=== PATIENT | male | born 1945 | race Caucasian/White ===

== ENCOUNTER → 2017-09-14 09:52 | Outpatient (CLI) | payer MEDICARE, OTHER, SELFPAY ==
--- NOTE | 2017-09-14 | DI.RAD.S_ITS ---
PROCEDURE: XR HIP W PEL IF DONE LT MIN 4V INDICATIONS: BILATERAL GROIN PAIN TECHNIQUE: AP pelvis with lateral view(s) of the bilateral hip(s), 3 total images. COMPARISON: None. FINDINGS: Bones: No fractures or dislocations. Pelvic ring appears intact. No suspicious bony lesions. Soft tissues: The visualized bowel gas pattern is normal. No suspicious soft tissue calcifications. IMPRESSION: Moderate symmetric hip joint osteoarthritis, no trauma found. Dictated by: Cedrick Skinner M.D. on 09/14/2017 at 12:16 Approved by: Cedrick Skinner M.D. on 09/14/2017 at 12:17
== END ==
PROVIDERS: Family Provider Family Medicine; PCP Family Medicine; Visit Provider Family Medicine
DX: R10.30 Lower abdominal pain, unspecified (principal); M16.0 Bilateral primary osteoarthritis of hip
CPT/HCPCS: 73522

== ENCOUNTER → 2017-10-03 13:12 | Outpatient (CLI) | payer MEDICARE, OTHER, SELFPAY ==
--- NOTE | 2017-10-03 13:13 | DI.MRI.S_ITS ---
PROCEDURE: MR LUMBAR SPINE WO CON INDICATIONS: SPINAL STENOSIS OF LUMBAR SPINE TECHNIQUE: Noncontrast sagittal T1 spin echo and T2 fast echo, sagittal STIR, axial T1 and T2 fast spin echo through the lumbar spine. In cases with scoliosis, additional coronal T2 fast spin echo may be performed. COMPARISON: [facility], MR, MR LUMBAR SPINE WO CON, 04/23/2016, 14:30. FINDINGS: Image quality: Excellent. Alignment and Curvature: Straightening of the normal lumbar lordosis and grade 1 retrolisthesis of L2 on L3, L3 on L4 and L4 on L5, L5 on S1 as before. Grade 1 anterolisthesis of T12 on L1 Bone Marrow: Marrow is of normal overall signal. Scattered chronic small Schmorl's nodes are seen. Mild anterior wedging of the L1 and L2 vertebral body which appears unchanged in no associated marrow edema. Spinal Cord: Conus medullaris terminates at the L1 level. Visualized cord demonstrates normal signal and size. Paraspinous Soft Tissues: Bilateral T2 hyperintense resume renal cysts, technically indeterminate and not entirely included on the field of view although grossly unchanged. At T12-L1: Broad-based posterior disc bulge and bilateral facet arthropathy with mild canal narrowing. No definite foraminal stenosis and appearance is grossly unchanged L1-L2: Broad-based posterior disc bulge bilateral facet arthropathy with mild canal narrowing, unchanged. No definite foraminal stenosis. L2-L3: Broad-based posterior disc bulge and bilateral facet arthropathy. Mild canal narrowing with unchanged appearance minimal bilateral foraminal stenoses. L3-L4: Broad-based posterior disc bulge and mild facet arthropathy. Mild canal narrowing which appears grossly unchanged. Mild bilateral foraminal narrowing. L4-L5: Broad-based posterior disc bulge and posterior annular fissure. Bilateral facet arthropathy with ligamentum flavum hypertrophy. Moderate canal narrowing which is minimally accentuated by a dorsal epidural lipomatosis. Mild to moderate bilateral foraminal stenoses. L5-S1: Broad-based posterior disc bulge and bilateral facet arthropathy. Mild canal narrowing. Severe bilateral foraminal stenoses although the appearance is grossly unchanged. IMPRESSION: Overall, no interval change since 04/23/16 with redemonstration of multilevel lumbar disc degeneration and facet arthropathy and moderate L4-L5 canal narrowing. Bilateral severe L5-S1 foraminal stenoses, unchanged. Dictated by: Anatoly Peacock M.D. on 10/03/2017 at 14:10 Approved by: Anatoly Peacock M.D. on 10/03/2017 at 14:20
== END ==
PROVIDERS: Family Provider Family Medicine; PCP Family Medicine; Visit Provider Physical Medicine & Rehabilitation
DX: M48.061 Spinal stenosis, lumbar region without neurogenic claudication (principal); M51.36 Other intervertebral disc degeneration, lumbar region; M70.61 Trochanteric bursitis, right hip; M70.62 Trochanteric bursitis, left hip
CPT/HCPCS: 72148

== ENCOUNTER 2017-11-01 07:11 | Outpatient (CLI) | payer MEDICARE, OTHER, SELFPAY ==
[2017-11-01] VITALS (13 sets, daily range): BP systolic 100–120; BP diastolic 61–83; PULSE 67–85; RESP 16–20; TEMP 36.3; O2SAT 97–100
--- NOTE | 2017-11-01 | DI.RAD.S_ITS ---
PROCEDURE: PAIN C/T INTERLAMINAR INJECT INDICATIONS: SPINAL STENOSIS FINDINGS: Fluoroscopic spot filming was performed to verify placement of spinal needles at the left C6-7 level(s), as labeled on the films. Appropriate location(s) of the needle tip(s) was confirmed by injection of iodinated contrast. IMPRESSION: Left C6-7 localization for interlaminar injection. Dictated by: Cedrick Skinner M.D. on 11/01/2017 at 12:52 Approved by: Cedrick Skinner M.D. on 11/01/2017 at 13:08
[2017-11-01] MEDS: MIDAZOLAM 5 MG/5 ML VIAL IV (08:23)
[2017-11-01] MEDS: DEXAMETHASONE 10 MG/ML VIAL 30 MG INJ (08:32)
[2017-11-01] MEDS: LIDOCAINE 1% 20 ML INJ 5 ML INJ (08:32)
[2017-11-01] MEDS: IOPAMIDOL 15 ML VIAL 3 ML INJ (08:32)
--- NOTE | 2017-11-01 08:37 | PM.PROC.1 ---
Procedures Date/Time Date of procedure: 11/01/17 Time of procedure: 08:37 General Procedure description: PREOP DIAGNOSIS 1. CERVICAL STENOSIS, 2. CERVICAL HNP WITH UPPER EXTREMITY RADICULAR FEATURES, POST OP DIAGNOSIS 1. CERVICAL STENOSIS, 2. CERVICAL HNP WITH UPPER EXTREMITY RADICULAR FEATURES, PROCEDURES 1. FLUORSCOPICALLY GUIDED CONTRAST CONTROLLED INTERLAMINAR EPIDURAL STEROID INJECTION - C6/7 TL ARTHUR PHYSICIAN: Jareth Sarkar, DO INDICATIONS Dick is referred by Dr. Amaya for treatment of Cervical HNP with Upper Extremity Paresthesias. FINDINGS Cervical Stenosis due to disc deterioration and nerve root irritation and nerve root irritation DESCRIPTION OF PROCEDURE Fluoroscopically guided, contrast-controlled C6/7 translaminar epidural steroid injection with conscious sedation. Following denial of allergy and review of potential side effects and complications, including, but not necessarily limited to, infection, allergic reaction, local tissue breakdown, temporary as well as permanent nerve injury, stroke, paralysis, and possible , the patient indicated that patient understood and agreed to proceed. An informed consent document was signed by the patient, witnessed by a nurse, and placed in the patient's chart. Additionally, other treatment options including modalities, medications, and physical therapy were reviewed with the patient. After review of previous anaesthesic history and IV conscious sedation the patient was deemed safe to proceed with todays procedure with IV conscious sedation as ASA class II designation. Safety time-out was performed to confirm patient ID, procedure to be performed and site of procedure. IV sedation was accomplished with a combination of 4mg of Versed administered by the RN after DO order, titrated to patient comfort during the course of the procedure while the patient remained responsive to all verbal commands. In the prone position, following sterile prep and drape of the cervical region, the C6/7 translaminar space was identified fluoroscopically. The skin was anesthetized via a 25-gauge 1.5-inch needle with 1% lidocaine solution. At this point, a 25-gauge, 2.5-inch short bevel spinal needle was atraumatically introduced and advanced under fluoroscopic guidance into epidural space at the C6/7 translaminar space. Depth was confirmed on lateral view. Radiological data, including multiple fluoroscopic views of the cervical spine, reveal a spinal needle at the C6/7 translaminar space. Lateral views then show placement of the needle in the epidural space. Subsequent views show contrast material flowing superiorly and inferiorly in the epidural space. DSA fluoroscopy with live contrast injection, once again, confirmed no vascular or intrathecal uptake. At this point, using loss of resistance technique with saline and air, the epidural space was entered. Following negative aspiration, injection of approximately 1.5 cc of Isovue-200 with live fluoroscopy in the AP view confirmed epidural flow in the epidural space without vascular or intrathecal uptake observed. Subsequently, a test dose of 1 cc of 1% lidocaine solution was injected and patient was observed for two minutes without signs or symptoms of complications, including abdominal pain, shortness of breath, bilateral upper or lower extremity weakness, nausea and vomiting, prior to steroid injection. At this point, 3 cc or 30 mg of dexamethasone was then injected without incident. The patient tolerated the procedure well without signs or symptoms of complications prior to being transferred to the recovery area for further monitoring, The patient was then transferred to the recovery area where they were observed for an appropriate period of time after the injection. The patient reported a VAS score of 6 prior to the procedure and a post-procedure VAS of 0. Total Fluoroscopy Time: 37.0 seconds Total Conscious Time: 24min POST OP INSTRUCTIONS The patient was provided a Pain Log to continue to record their response to the target-specific procedure prior to follow-up visit with the referring provider. Additionally, specific post-injection care instructions and a contact number to our office were provided if concerns arise regarding possible complications associated with the procedure are suspected. Jareth Sarkar, Complications: none
--- NOTE | 2017-11-02 14:16 | PC.NURSE ---
FOLLOW UP PHONE CALL MADE. LEFT MSG WITH OFFICE NUMBER IF PT HAS QUESITONS/CONCERNS.
== END 2017-11-01 09:08 ==
LOC: RAD 07:12
PROVIDERS: Family Provider Family Medicine; PCP Family Medicine; Visit Provider Physical Medicine & Rehabilitation
DX: M48.02 Spinal stenosis, cervical region (principal); M50.123 Cervical disc disorder at C6-C7 level with radiculopathy
CPT/HCPCS: 62321; 99152; J1100; J2250

== ENCOUNTER → 2017-12-12 15:48 | Outpatient (CLI) | payer MEDICARE, OTHER, SELFPAY ==
--- NOTE | 2017-12-12 | DI.RAD.S_ITS ---
PROCEDURE: XR SHOULDER RT MIN 2V INDICATIONS: RIGHT SHOULDER PAIN TECHNIQUE: 3 views of the shoulder were acquired. COMPARISON: None. FINDINGS: Bones: No fractures or dislocations. No suspicious bony lesions. Visualized ribs appear intact. Soft tissues: No suspicious soft tissue calcifications. IMPRESSION: Degenerative osteophytic changes seen over the glenohumeral joint and to a small degree at the acromioclavicular joint. No acute trauma found. Dictated by: Cedrick Skinner M.D. on 12/12/2017 at 16:42 Approved by: Cedrick Skinner M.D. on 12/12/2017 at 16:43
== END ==
PROVIDERS: Family Provider Family Medicine; PCP Family Medicine; Visit Provider Nurse Practitioner Family
DX: M25.511 Pain in right shoulder (principal); M19.011 Primary osteoarthritis, right shoulder
CPT/HCPCS: 73030

== ENCOUNTER 2018-12-28 07:48 | Outpatient (CLI) | payer MEDICARE, OTHER, SELFPAY ==
--- NOTE | 2018-12-28 07:49 | DI.RAD.S_ITS ---
PROCEDURE: PAIN C/T INTERLAMINAR INJECT INDICATIONS: SPINAL STENOSIS FINDINGS: Fluoroscopic spot filming was performed to verify placement of spinal needles at the C6-C7 level(s), as labeled on the films. Appropriate location(s) of the needle tip(s) was confirmed by injection of iodinated contrast. Dictated by: Anatoly Peacock M.D. on 12/28/2018 at 10:13 Approved by: Anatoly Peacock M.D. on 12/28/2018 at 10:15
[2018-12-28 08:27] VITALS: BP 116/77; PULSE 61; RESP 16; TEMP 36; O2SAT 96
[2018-12-28 09:04] VITALS: BP 118/96; PULSE 65; RESP 16; O2SAT 98
[2018-12-28] MEDS: fentaNYL 100 MCG/2 ML INJ 50 MCG IV (09:04)
[2018-12-28] MEDS: MIDAZOLAM 5 MG/5 ML VIAL IV (09:04)
[2018-12-28 09:09] VITALS: BP 108/75; PULSE 61; RESP 15; O2SAT 97
[2018-12-28] MEDS: LIDOCAINE 1% 20 ML 5 ML INJ (09:13)
[2018-12-28 09:14] VITALS: BP 115/75; PULSE 60; RESP 16; O2SAT 97
[2018-12-28] MEDS: IOPAMIDOL 15 ML VIAL 3 ML INJ (09:14)
[2018-12-28] MEDS: DEXAMETHASONE 10 MG/ML VIAL 30 MG INJ (09:15)
[2018-12-28 09:21] VITALS: BP 105/80; PULSE 66; RESP 16; O2SAT 97
[2018-12-28 09:34] VITALS: BP 125/79; PULSE 60; RESP 16; O2SAT 97
--- NOTE | 2018-12-28 09:34 | P.PCN_ITS ---
Procedures Date/Time Date of procedure: 12/28/18 Time of procedure: 09:34 General Procedure description: PREOP DIAGNOSIS 1. CERVICAL STENOSIS, 2. CERVICAL HNP WITH UPPER EXTREMITY RADICULAR FEATURES, POST OP DIAGNOSIS 1. CERVICAL STENOSIS, 2. CERVICAL HNP WITH UPPER EXTREMITY RADICULAR FEATURES, PROCEDURES 1. FLUORSCOPICALLY GUIDED CONTRAST CONTROLLED INTERLAMINAR EPIDURAL STEROID INJECTION - C6/7 TL ARTHUR PHYSICIAN: Jareth Sarkar, DO INDICATIONS Dick is referred by Dr. Amaya for treatment of Cervical HNP with Upper Extremity Paresthesias. FINDINGS Cervical Stenosis due to disc deterioration and nerve root irritation and nerve root irritation DESCRIPTION OF PROCEDURE Fluoroscopically guided, contrast-controlled C6/7 translaminar epidural steroid injection with conscious sedation. Following review of allergy and review of potential side effects and complications, including, but not necessarily limited to, infection, allergic reaction, local tissue breakdown, temporary as well as permanent nerve injury, stroke, paralysis, and possible , the patient indicated that patient understood and agreed to proceed. An informed consent document was signed by the patient, witnessed by a nurse, and placed in the patient's chart. Additionally, other treatment options including modalities, medications, and physical therapy were reviewed with the patient. After review of previous anaesthesic history and IV conscious sedation the patient was deemed safe to proceed with todays procedure with IV conscious sedation as ASA class II designation. Safety time-out was performed to confirm patient ID, procedure to be performed and site of procedure. IV sedation was accomplished with a combination of 3mg of Versed and 50mcg of Fentanyl administered by the RN after DO order, titrated to patient comfort during the course of the procedure while the patient remained responsive to all verbal commands. In the prone position, following sterile prep and drape of the cervical region, the C6/7 translaminar space was identified fluoroscopically. The skin was anesthetized via a 25-gauge 1.5-inch needle with 1% lidocaine solution. At this point, a 25-gauge, 2.5-inch short bevel spinal needle was atraumatically i ntroduced and advanced under fluoroscopic guidance into epidural space at the C6/7 translaminar space. Depth was confirmed on lateral view. Radiological data, including multiple fluoroscopic views of the cervical spine, reveal a spinal needle at the C6/7 translaminar space. Lateral views then show placement of the needle in the epidural space. Subsequent views show contrast material flowing superiorly and inferiorly in the epidural space. DSA fluoroscopy with live contrast injection, once again, confirmed no vascular or intrathecal uptake. At this point, using loss of resistance technique with saline and air, the epidural space was entered. Following negative aspiration, injection of approximately 1.5 cc of Isovue-200 with live fluoroscopy in the AP view confirmed epidural flow in the epidural space without vascular or intrathecal uptake observed. Subsequently, a test dose of 1 cc of 1% lidocaine solution was injected and patient was observed for two minutes without signs or symptoms of complications, including abdominal pain, shortness of breath, bilateral upper or lower extremity weakness, nausea and vomiting, prior to steroid injection. At this point, 3cc or 30mg of dexamethasone was then injected without incident. The patient tolerated the procedure well without signs or symptoms of complications prior to being transferred to the recovery area for further francisca toring, The patient was then transferred to the recovery area where they were observed for an appropriate period of time after the injection. The patient reported a VAS score of 6 prior to the procedure and a post-procedure VAS of 0. Total Fluoroscopy Time: 37.0 seconds Total Conscious Time: 24min POST OP INSTRUCTIONS The patient was provided a Pain Log to continue to record their response to the target-specific procedure prior to follow-up visit with the referring provider. Additionally, specific post-injection care instructions and a contact number to our office were provided if concerns arise regarding possible complications associated with the procedure are suspected. Jareth Sarkar, Complications: none
--- NOTE | 2018-12-28 09:37 | PC.NURSE ---
Post procedure note: time out at 0902. Medicated with Versed 2 mg IV and 50 mcg Fentanyl IV per providers orders. tolerated procedure well. VSS throughout procedure. O2 sat WNL on 2L/MASSOTHERAPIST. Sat up and transfered to wheelchair without difficulty. No complaints of pain. Pain level 0/10. Denies any unusual numbness or tingling to upper extremities. Transported for post monitoring at 0929. Handoff report given to Nora Duke RN.
--- NOTE | 2018-12-28 09:39 | PC.NURSE ---
ACCEPTED CARE OF PT IN POST PROC AREA IN STABLE CONDITION
== END 2018-12-28 09:45 | disposition home or self-care (01) ==
LOC: RAD 07:49
PROVIDERS: Family Provider Family Medicine; PCP Family Medicine; Visit Provider Physical Medicine & Rehabilitation
DX: M48.02 Spinal stenosis, cervical region (principal); M50.123 Cervical disc disorder at C6-C7 level with radiculopathy; R20.2 Paresthesia of skin
CPT/HCPCS: 62321; 99152; J1100; J2250; J3010

== ENCOUNTER 2019-02-22 11:07 | Outpatient (CLI) | payer MEDICARE, OTHER, SELFPAY ==
[2019-02-22] VITALS (11 sets, daily range): BP systolic 111–135; BP diastolic 66–89; PULSE 60–79; RESP 16–18; TEMP 36.1; O2SAT 96–99
--- NOTE | 2019-02-22 11:09 | DI.RAD.S_ITS ---
PROCEDURE: XR LUMBAR SPINE MIN 4V INDICATIONS: Lumbosacral spondylosis TECHNIQUE: 5 views of the lumbar spine were acquired. COMPARISON: [facility], MR, MR LUMBAR SPINE WO CON, 10/03/2017, 13:47. FINDINGS: Bones: 5 nonrib-bearing vertebrae are present. There is normal bony alignment. Mild chronic compression fracture of L2. No suspicious bony lesions. There is degenerative disc disease, severe at L3-L4 and L5-S1, moderate at L1-L2, L2-L3 and L4-L. Severe facet arthropathy at L5-S1. Note is made of a right hip prosthesis. Soft tissues: Overlying bowel gas pattern is normal. No suspicious soft tissue calcifications. Oblique images: No pars defects. IMPRESSION: 1. Seveer degenerative disc and facet disease in lumbar spine. 2. Mild chronic compression fracture of L2. Dictated by: Conrado Sanchez M.D. on 02/22/2019 at 16:53 Approved by: Conrado Sanchez M.D. on 02/22/2019 at 16:56
--- NOTE | 2019-02-22 11:09 | DI.RAD.S_ITS ---
PROCEDURE: PAIN L/S MED/LAT N RFA BILAT INDICATIONS: SPONDYLOSIS FINDINGS: Fluoroscopic spot filming was performed to verify placement of spinal needles at the L4, L5 and S1 level(s), as labeled on the films. Appropriate location(s) of the needle tip(s) was confirmed by injection of iodinated contrast. IMPRESSION: Fluoroscopy for pain management. Dictated by: Conrado Sanchez M.D. on 02/22/2019 at 14:04 Approved by: Conrado Sanchez M.D. on 02/22/2019 at 14:05
[2019-02-22] MEDS: MIDAZOLAM 5 MG/5 ML VIAL IV (11:50)
[2019-02-22] MEDS: fentaNYL 100 MCG/2 ML INJ 50 MCG IV (11:51)
[2019-02-22] MEDS: BUPIVACAINE 0.5% (PF) VIAL 5 ML INJ (12:01)
[2019-02-22] MEDS: LIDOCAINE 1% 20 ML 10 ML INJ (12:01)
--- NOTE | 2019-02-22 12:21 | PC.NURSE ---
ASSISTING PT OFF TABLE AND TRANSPORTING TO POST PROC AREA IN STABLE CONDITION. PASSING RN CARE OF PT OFF TO JOEL Covington RN.
--- NOTE | 2019-02-22 12:30 | P.PCN_ITS ---
Procedures Date/Time Date of procedure: 02/22/19 Time of procedure: 12:30 General Procedure description: PREOP DIAGNOSIS 1. RECALCITRANT FACET ARTHROPATHY, POST OP DIAGNOSIS 1. RECALCITRANT FACET ARTHROPATHY PROCEDURES 1. BILATERAL L4 AND L5 MEDIAL BRANCH RADIOFREQUENCY NEUROTOMY AND S1 DORSAL RAMUS BRANCH RADIOFREQUENCY NEUROTOMY, PHYSICIAN: Jareth Sarkar DO INDICATIONS: Dick is referred by for treatment of facet arthropathy. DESCRIPTION OF PROCEDURE Right L4 and L5 medial branch radiofrequency neurotomy and right S1 dorsal ramus radiofrequency neurotomy under fluoroscopy with conscious sedation. The patient is well known to this clinic having undergone previous facet injections with good but temporary relief. The patient has experienced appropriate, concordant relief with previous facet and median branch blocks but the patient's pain has been recalcitrant to further conservative measures. Therefore, based upon the patient's relief and persistent symptoms, the patient is considered an appropriate candidate for facet rhizotomy. All of the patient's questions regarding the risks versus benefits of the procedure, including, but not limited to, bleeding, infection, temporary as well as lasting nerve injury, paralysis, stroke, and , as well treatment alternatives were answered to satisfaction. After obtaining informed consent, denial of pertinent drug allergies, as well as being made aware of the potential risks of bleeding, infection, spinal cord trauma, paralysis, temporary and permanent nerve damage, seizure, stroke, and possible , the patient was brought to the fluoroscopy suite and positioned prone on the fluoroscopy table. The lumbar region was prepped with Betadine and covered with a fenestrated drape in the usual sterile fashion. Appropriate monitors applied including pulse oximeter, pulse, and blood pressure for regular monitoring throughout the procedure. After review of previous anaesthesic history and IV conscious sedation the patient was deemed safe to proceed with todays procedure with IV conscious sedation as ASA class II designation. Safety time-out was performed to confirm patient ID, procedure to be performed and site of procedure. IV sedation was accomplished with a combination of 3mg of Versed and 50mcg of Fentanyl administered by the RN after DO order, titrated to patient comfort during the course of the procedure while the patient remained responsive to all verbal commands. After local infiltration using 1% lidocaine, under fluoroscopic guidance, a 10- cm RF insulated needle with a 10-mm active tip was positioned parallel to the junction of the right sacral ala and the superior articulating process where the S1 dorsal ramus resides. Needle placement was confirmed with sensory stimulation at 50 Hz, with motor stimulation of .5v on the right which produced local stimulation without radicular component. The stimulation was then increased to 1.5v with, once again, only local multifidus stimulation without radicular component. This was then followed by two discreet lesions performed at 80 degrees Celsius for 90 seconds each. The needle was then removed and the identical procedure was performed along the length of the right L5 medial branch with motor stimulation at .7v on the right. The identical procedure was once again performed along the length of the right L4 medial branch with motor stimulation of .5v on the right. The identical procedure was repeated on the left. The patient tolerated the procedure well without signs or symptoms of complications prior to transfer to the recovery area continued monitoring without incident. The patient was then transferred to the recovery area where they were observed for an appropriate period of time after the injection. The patient reported a VAS score of 9 prior to the procedure and a post-procedure VAS of 0. Total Fluoroscopy Time: 22.7 seconds Total Conscious Sedation Time: 34min POST OP INSTRUCTIONS The patient was provided a Pain Log to continue to record the patient's response to the target-specific procedure prior to the patient's follow-up visit with the referring physician. Additionally, specific post-injection care instructions and a contact number to our office were provided if concerns arise regarding possible complications associated with the procedure are suspected. Jareth Sarkar DO Complications: none
== END 2019-02-22 12:36 | disposition home or self-care (01) ==
LOC: RAD 11:08
PROVIDERS: PCP Student in an Organized Health Care Education/Training Program; Visit Provider Physical Medicine & Rehabilitation
DX: M47.816 Spondylosis without myelopathy or radiculopathy, lumbar region (principal); M47.817 Spondylosis without myelopathy or radiculopathy, lumbosacral region
CPT/HCPCS: 64635; 64636; 72110; 99152; J2250; J3010

== ENCOUNTER → 2019-08-04 08:51 | Outpatient (CLI) | payer MEDICARE, OTHER, SELFPAY ==
[2019-08-05 23:07] LABS: COVID19 Sendout Not Detected (Not Detect)
== END ==
PROVIDERS: PCP Student in an Organized Health Care Education/Training Program; Visit Provider Physician Assistant
DX: Z01.818 Encounter for other preprocedural examination (principal)
CPT/HCPCS: 87635

== ENCOUNTER 2019-08-07 12:16 | Outpatient (CLI) | payer MEDICARE, OTHER, SELFPAY ==
--- NOTE | 2019-08-07 12:19 | DI.RAD.S_ITS ---
PROCEDURE: PAIN SI JOINT INJECTION MELY COMPARISON: None. INDICATIONS: SACROCOCCYGEAL DISORDER FINDINGS: Bilateral inferior sacroiliac joint needle tip localization for SI joint injections. IMPRESSION: Normal needle tip positioning for successful inferior sacroiliac joint injection, bilaterally. Dictated by: Cedrick Skinner M.D. on 08/07/2019 at 15:42 Approved by: Cedrick Skinner M.D. on 08/07/2019 at 15:43
[2019-08-07 12:25] VITALS: BP 127/83; PULSE 62; RESP 16; TEMP 36.7; O2SAT 99
[2019-08-07 13:21] VITALS: BP 137/81; PULSE 65; RESP 16; O2SAT 98
[2019-08-07 13:26] VITALS: BP 119/84; PULSE 60; RESP 16; O2SAT 98
[2019-08-07 13:31] VITALS: BP 123/78; PULSE 62; RESP 16; O2SAT 99
[2019-08-07] MEDS: BUPIVACAINE 0.5% (PF) VIAL 2 ML INJ (13:31)
[2019-08-07] MEDS: BETAMETHASONE 30 MG/5 ML MDV 12 MG INJ (13:31)
[2019-08-07] MEDS: IOPAMIDOL 15 ML VIAL 3 ML INJ (13:31)
[2019-08-07] MEDS: LIDOCAINE 1% 20 ML 5 ML INJ (13:31)
[2019-08-07 13:35] VITALS: BP 119/84; PULSE 66; RESP 16; O2SAT 99
--- NOTE | 2019-08-07 13:36 | PC.NURSE ---
NO SEDATION MEDS GIVEN. ASSISTING PT OFF TABLE AND TRANSPORTING TO POST PROC AREA IN STABLE CONDITION. PASSING RN CARE OF PT OFF TO LILLIAN RHODES.
--- NOTE | 2019-08-07 13:41 | PM.PROC.1 ---
Procedures Date/Time Date of procedure: 08/07/19 Time of procedure: 13:41 General Procedure description: PREOP Dx: Sacroiliac joint pain/DJD POST OP DX: Sacroiliac Joint Pain/DJD Procedures: Fluoroscopic guided contrast controlled bilateral sacroiliac joint injection Physician: Jareth Sarkar D.O. Indications: Dick is referred by for treatment of bilateral sacroiliac joint DJD Description of procedure Fluoroscopic guided, contrast controlled bilateral sacroiliac joint injection Following review of allergies and review of potential side effects and complications, including, but not necessarily limited to, infection, allergic reaction, local tissue breakdown, temporary as well as permanent nerve injury, paralysis, stroke and possible , the patient indicated that they understood and agreed to proceed. An informed consent was signed by the patient, witnessed by a nurse, and placed in the patient's chart. Additionally, other treatment options including modalities, medications, and physical therapy were reviewed with the patient. After review of previous anaesthesic history and IV conscious sedation the patient was deemed safe to proceed with todays procedure with IV conscious sedation as ASA class II designation. Safety time-out was performed to confirm patient ID, procedure to be performed and site of procedure. IV sedation was deemed unecessary and thus not administered by the RN after DO order, titrated to patient comfort during the course of the procedure while the patient remained responsive to all verbal commands In the prone position following sterile prep and drape of the pelvic region, the hyper lucency on in the inferior aspect of the sacroiliac joint was identified fluoroscopically the skin was anesthetized be a 25 gauge 1 eventual with approximately 2 cc of 1% lidocaine solution. At this point, a 22 gauge 3 in spinal needle was atraumatically introduced and advanced under fluoroscopic guidance into the inferior aspect of the right sacroiliac joint. Following negative aspiration, approximately 0.3 cc of Isovue-300 was injected confirming intra-articular placement without vascular uptake. Radiographic data, including multiple fluoroscopic views of the pelvis, reveals a spinal needle in the sacroiliac joint hyper lucent zone. Subsequent view show flow contrast tear superiorly and inferiorly within the joint capsule without vascular intrathecal uptake. At this point a total of 1 cc or 0 8 of 0.5% Marcaine was combined with 1 cc of 6 mg of betamethasone was injected without incident. Attention was then refocused the left sacroiliac joint where the procedure was replicated. The procedure tolerated the procedure well without signs or symptoms of complications prior to transfer to the recovery area continued monitoring without incident. The patient was then transferred to the recovery area with a bur observed for an appropriate time after the injection. The patient reverted a vas score of 7 prior to the procedure and postprocedure vas of 1. Total fluoroscopy time: 9 sec Total conscious sedation time: 24 min Postop instructions The patient was provided with a pain like to continue to record the patient's response to the target specific procedure prior to the patient's follow-up visit with the referring physician. Additionally, specific post injection care instructions and a contact number to our office were provided if concerns arise regarding the possible complications associated with procedure are suspected. Jareth aSrkar D.O. Complications: none
[2019-08-07 13:45] VITALS: BP 149/69; PULSE 64; RESP 14; O2SAT 98
--- NOTE | 2019-08-07 13:57 | PC.NURSE ---
NO SEDATION MEDS GIVEN DURING PROCEDURE.
== END 2019-08-07 13:45 | disposition home or self-care (01) ==
LOC: RAD 12:18
PROVIDERS: PCP Student in an Organized Health Care Education/Training Program; Referring Provider Physical Medicine & Rehabilitation; Visit Provider Physical Medicine & Rehabilitation
DX: M53.3 Sacrococcygeal disorders, not elsewhere classified (principal); M47.898 Other spondylosis, sacral and sacrococcygeal region
CPT/HCPCS: 27096; J0702; J2250; J3010

== ENCOUNTER → 2019-09-05 18:29 | Outpatient (CLI) | payer MEDICARE, OTHER, SELFPAY ==
--- NOTE | 2019-09-05 18:32 | DI.MRI.S_ITS ---
PROCEDURE: MR LUMBAR SPINE WO CON INDICATIONS: Chronic progressive SI and low back pain TECHNIQUE: Noncontrast sagittal T1 spin echo and T2 fast echo, sagittal STIR, axial T1 and T2 fast spin echo through the lumbar spine. COMPARISON: [facility], MR, MR LUMBAR SPINE WO CON, 10/03/2017, 13:47. [facility], CR, XR LUMBAR SPINE MIN 4V, 02/22/2019, 11:14. FINDINGS: Image quality: Excellent. Alignment and Curvature: There is loss of normal lumbar lordosis. There is mild, grade 1 retrolisthesis of L2 on L3, L3 on L4, L4 on L5, and L5 on S1. Bone Marrow: Marrow is of normal overall signal. No acute vertebral body compression fractures. Mild reactive signal within the endplates adjacent to the T12-L1, L1-L2, L2-L3, L3-L4, L4-L5, and L5-S1 intervertebral discs. Spinal Cord: Conus medullaris terminates at the lower L1 level. Visualized cord demonstrates normal signal and size. Paraspinous Soft Tissues: No paravertebral masses. Bilateral renal cysts are present, as before. L1-L2: Moderate disc height loss and desiccation. Mild diffuse disc bulge. Mild facet and ligamentum flavum hypertrophy. Mild canal stenosis. Mild bilateral foraminal stenosis. No change. L2-L3: Moderate disc height loss and desiccation. Mild diffuse disc bulge. Mild facet and ligamentum flavum hypertrophy. Mild canal stenosis. Mild bilateral foraminal stenosis. No change. L3-L4: Moderate disc height loss and desiccation. Mild diffuse disc bulge superimposed left far lateral broad-based protrusion. Mild facet and uncovertebral hypertrophy bilaterally. Increased, moderate canal stenosis. No change in mild bilateral foraminal stenosis. L4-L5: Moderate disc height loss and desiccation. Mild diffuse disc bulge. Mild facet and ligament flavum hypertrophy bilaterally. Increased, moderate canal stenosis. No change in mild bilateral foraminal stenosis. L5-S1: Moderate disc height loss and desiccation. Mild diffuse disc bulge. Mild bilateral facet hypertrophy. Mild canal stenosis. Moderate subarticular foraminal stenosis bilaterally. No change. IMPRESSION: 1. Multilevel degenerative disc and facet disease, as well as ligamentum flavum hypertrophy and epidural lipomatosis. 2. Multilevel canal stenoses, worst at L3-L4 and L4-L5, where there are increased, moderate canal stenoses. 3. Multilevel foraminal stenoses, worst at L5-S1, where there are moderate bilateral foraminal stenoses. Dictated by: Teodoro Rossi M.D. on 09/06/2019 at 8:52 Approved by: Teodoro Rossi M.D. on 09/06/2019 at 8:56
== END ==
PROVIDERS: PCP Student in an Organized Health Care Education/Training Program; Referring Provider Physical Medicine & Rehabilitation; Visit Provider Physical Medicine & Rehabilitation
DX: M53.3 Sacrococcygeal disorders, not elsewhere classified (principal); M47.816 Spondylosis without myelopathy or radiculopathy, lumbar region; M48.061 Spinal stenosis, lumbar region without neurogenic claudication; M48.07 Spinal stenosis, lumbosacral region; M51.36 Other intervertebral disc degeneration, lumbar region; M51.37 Other intervertebral disc degeneration, lumbosacral region; E88.2 Lipomatosis, not elsewhere classified
CPT/HCPCS: 72148

== ENCOUNTER → 2019-10-27 16:12 | Outpatient (CLI) | payer MEDICARE, OTHER, SELFPAY ==
[2019-10-29 06:19] LABS: COVID19 Sendout Not Detected (Not Detect)
== END ==
PROVIDERS: PCP Student in an Organized Health Care Education/Training Program; Visit Provider Nurse Practitioner
DX: Z11.59 Encounter for screening for other viral diseases (principal)
CPT/HCPCS: 87635

== ENCOUNTER 2019-10-30 14:50 | Outpatient (CLI) | payer MEDICARE, OTHER, SELFPAY ==
--- NOTE | 2019-10-30 14:55 | DI.RAD.S_ITS ---
PROCEDURE: PAIN L INTERLAMINAR/CAUDAL INJ INDICATIONS: L5/S1 TL ARTHUR COMPARISON: None. FINDINGS: Fluoroscopic spot filming was performed to verify placement of spinal needles at the L5-S1 level(s), as labeled on the films. Appropriate location(s) of the needle tip(s) was confirmed by injection of iodinated contrast. Dictated by: Anatoly Peacock M.D. on 10/30/2019 at 17:13 Approved by: Anatoly Peacock M.D. on 10/30/2019 at 17:13
[2019-10-30 15:15] VITALS: BP 110/68; PULSE 64; RESP 16; TEMP 36.5; O2SAT 96
[2019-10-30 16:16] VITALS: BP 128/67; PULSE 62; RESP 98; O2SAT 99
[2019-10-30 16:20] VITALS: BP 125/81; PULSE 70; RESP 13; O2SAT 98
[2019-10-30 16:25] VITALS: BP 137/87; PULSE 66; RESP 17; O2SAT 99
[2019-10-30] MEDS: IOPAMIDOL 15 ML VIAL 3 ML INJ (16:25)
[2019-10-30] MEDS: BETAMETHASONE 30 MG/5 ML MDV 12 MG INJ (16:25)
[2019-10-30] MEDS: BUPIVACAINE 0.25% (PF) VIAL 2 ML INJ (16:26)
--- NOTE | 2019-10-30 16:35 | P.PCN_ITS ---
Date/Time/Diagnoses Date of procedure: 10/30/19 Time of procedure: 16:35 Pre-procedure diagnosis: 1. HNP WITH RADICULAR FEATURES, 2. MULTILEVEL CENTRAL STENOSIS, Post-procedure diagnosis: same Procedure Notes Procedure: 1. FLUOROSCOPICALLY GUIDED CONTRAST CONTROLLED INTERLAMINAR EPIDURAL STEROID INJECTION - L5/S1 Indications: Dick is referred by ANNELISE Vann for treatment of Bilateral Foraminal Stenosis L>R LE symptoms. Physician: Jareth Sarkar Total Fluoroscopy time (seconds): 4 Total sedation minutes: 0 Complications: none Procedure in detail & Post-procedure care: FINDINGS Multilevel Central Spinal Stenosis with Nerve Root Compression DESCRIPTION OF PROCEDURE Fluoroscopically guided, contrast-controlled L5/S1 translaminar epidural steroid injection. Following review of allergy and review of potential side effects and complications, including, but not necessarily limited to, infection, allergic reaction, local tissue breakdown, temporary as well as permanent nerve injury, paralysis, stroke and possible , the patient indicated that the patient understood and agreed to proceed. An informed consent document was signed by the patient, witnessed by a nurse, and placed in the patient's chart. Additionally, other treatment options including modalities, medications, and physical therapy were reviewed with the patient. After review of previous anaesthesic history and IV conscious sedation the patient was deemed safe to proceed with today?s procedure with IV conscious sedation as ASA class II designation. Safety time-out was performed to confirm patient ID, procedure to be performed and site of procedure. IV sedation was deemed unnecessary and thus not administered by the RN after DO order during the course of the procedure while the patient remained responsive to all verbal commands. In the prone position, following sterile prep and drape of the lumbar region, the L5/S1 translaminar space was identified fluoroscopically. The skin was anesthetized via a 25-gauge, 1.5-inch needle with 1% lidocaine solution. At this point, a 22-gauge short bevel spinal needle was atraumatically introduced and advanced under fluoroscopic guidance into the region of the L5/S1 translaminar space. Depth was confirmed on lateral view. Radiological data, including multiple fluoroscopic views of the lumbar spine, reveal a spinal needle at the L5/S1 translaminar space. Lateral views then show placement of the needle in the epidural space. Subsequent views show contrast material flowing superiorly and inferiorly in the epidural space. No vascular or intrathecal uptake is observed. At this point, using loss of resistance technique with saline and air, the epidural space was entered. This was confirmed following negative aspiration with injection of approximately 1.5cc of Isovue 200, showing excellent epidural flow without vascular or intrathecal uptake. At this point, 1cc of 1% lidocaine solution combined with 3cc or 18mg of betamethasone was injected without incident. The patent tolerated the procedure without signs of symptoms of complications prior to transfer to the recovery area for further monitoring. The patient was t hen transferred to the recovery area where they were observed for an appropriate period of time after the injection. The patient reported a VAS score of 6 prior to the procedure and a post-procedure VAS of 0. POST OP INSTRUCTIONS The patient was provided a Pain Log to continue to record their response to the target-specific procedure prior to follow-up visit with their referring physician. Additionally, specific post-injection care instructions and a contact number to our office were provided if concerns arise regarding possible complications associated with the procedure are suspected.
[2019-10-30 16:38] VITALS: BP 131/74; PULSE 68; RESP 26; O2SAT 97
== END 2019-10-30 16:42 | disposition home or self-care (01) ==
LOC: RAD 14:55
PROVIDERS: PCP Physician Assistant Medical; Referring Provider Physician Assistant Medical; Visit Provider Physical Medicine & Rehabilitation
DX: M51.17 Intervertebral disc disorders with radiculopathy, lumbosacral region (principal); M48.07 Spinal stenosis, lumbosacral region
CPT/HCPCS: 62323; 99152; J0702; J1100; J2250; J3010

== ENCOUNTER → 2020-03-19 10:04 | Outpatient (CLI) | payer MEDICARE, OTHER, SELFPAY ==
--- NOTE | 2020-03-19 10:06 | DI.RAD.S_ITS ---
PROCEDURE: XR LUMBAR SPINE MIN 4V INDICATIONS: Progressive low back pain TECHNIQUE: 4 views of the lumbar spine were acquired. COMPARISON: [facility], , XR LUMBAR SPINE MIN 4V, 02/22/2019, 11:14. FINDINGS: Bones: Unchanged L2 compression fracture, mild. Multilevel degenerative endplate sclerosis and spurring. Diffuse facet arthropathy. Moderate diffuse narrowing of the lumbar disc spaces, grossly unchanged. Straightening of the normal lordotic curvature. Partially visualized mild dextrocurvature. Trace retrolisthesis of L3 on L4. Soft tissues: Overlying bowel gas pattern is normal. No suspicious soft tissue calcifications. Oblique images: No pars defects. IMPRESSION: Mild dextrocurvature Unchanged diffuse lumbar spondylosis Unchanged mild L2 compression fracture Facet arthropathy Dictated by: Anatoly Peacock M.D. on 03/19/2020 at 11:16 Approved by: Anatoly Peacock M.D. on 03/19/2020 at 11:18
== END ==
PROVIDERS: PCP Physician Assistant Medical; Referring Provider Physical Medicine & Rehabilitation; Visit Provider Physical Medicine & Rehabilitation
DX: M53.3 Sacrococcygeal disorders, not elsewhere classified (principal); M47.816 Spondylosis without myelopathy or radiculopathy, lumbar region; M48.061 Spinal stenosis, lumbar region without neurogenic claudication; M16.0 Bilateral primary osteoarthritis of hip; M48.56XS Collapsed vertebra, not elsewhere classified, lumbar region, sequela of fracture
CPT/HCPCS: 72110; 99213

== ENCOUNTER → 2020-04-01 12:14 | Outpatient (CLI) | payer MEDICARE, OTHER, SELFPAY ==
[2020-04-01 14:15] LABS: COVID19 -Nasal RAPID Negative (Negative)
== END ==
PROVIDERS: PCP Physician Assistant Medical; Visit Provider Physical Medicine & Rehabilitation
DX: Z20.822 Contact with and (suspected) exposure to COVID-19 (principal)
CPT/HCPCS: 87635; C9803

== ENCOUNTER 2020-04-03 13:37 | Outpatient (CLI) | payer MEDICARE, OTHER, SELFPAY ==
--- NOTE | 2020-04-03 13:38 | DI.RAD.S_ITS ---
PROCEDURE: PAIN L INTERLAMINAR/CAUDAL INJ INDICATIONS: SPONDYLOSIS COMPARISON: [facility], XA, PAIN L INTERLAMINAR/CAUDAL INJ, 10/30/2019, 16:21. FINDINGS: Fluoroscopic spot filming was performed to verify placement of a spinal needle at the L5-S1 level, as labeled on the films. Appropriate location of the needle tip was confirmed by injection of iodinated contrast. IMPRESSION: No significant intraprocedural abnormality. Dictated by: Lamont Troy M.D. on 04/03/2020 at 13:59 Approved by: Lamont Troy M.D. on 04/03/2020 at 14:00
[2020-04-03 13:58] VITALS: BP 137/77; PULSE 66; RESP 18; TEMP 36.7; O2SAT 97
[2020-04-03 14:10] VITALS: BP 142/80; PULSE 71; RESP 12; O2SAT 100
[2020-04-03] MEDS: BETAMETHASONE 30 MG/5 ML MDV 6 MG INJ (14:14)
[2020-04-03 14:15] VITALS: BP 131/74; PULSE 67; RESP 10; O2SAT 100
[2020-04-03] MEDS: DEXAMETHASONE 10 MG/ML VIAL 20 MG INJ (14:15)
[2020-04-03] MEDS: BUPIVACAINE 0.25% (PF) VIAL 2 ML INJ (14:15)
[2020-04-03] MEDS: IOPAMIDOL 15 ML VIAL 3 ML INJ (14:15)
--- NOTE | 2020-04-03 14:20 | PM.PROC.IR.1 ---
Date/Time/Diagnoses Date of procedure: 04/03/20 Time of procedure: 14:20 Pre-procedure diagnosis: 1. HNP WITH RADICULAR FEATURES, 2. MULTILEVEL CENTRAL STENOSIS, Post-procedure diagnosis: same Procedure Notes Procedure: 1. FLUOROSCOPICALLY GUIDED CONTRAST CONTROLLED INTERLAMINAR EPIDURAL STEROID INJECTION - L5/S1 Indications: Dick is referred by ANNELISE Vann for treatment of Bilateral Foraminal Stenosis L>R LE symptoms. Physician: Jareth Sarkar Total Fluoroscopy time (seconds): 5 Total sedation minutes: 0 Complications: none Procedure in detail & Post-procedure care: FINDINGS Multilevel Central Spinal Stenosis with Nerve Root Compression DESCRIPTION OF PROCEDURE Fluoroscopically guided, contrast-controlled L5/S1 translaminar epidural steroid injection. Following review of allergy and review of potential side effects and complications, including, but not necessarily limited to, infection, allergic reaction, local tissue breakdown, temporary as well as permanent nerve injury, paralysis, stroke and possible , the patient indicated that the patient understood and agreed to proceed. An informed consent document was signed by the patient, witnessed by a nurse, and placed in the patient's chart. Additionally, other treatment options including modalities, medications, and physical therapy were reviewed with the patient. After review of previous anaesthesic history and IV conscious sedation the patient was deemed safe to proceed with today?s procedure with IV conscious sedation as ASA class II designation. Safety time-out was performed to confirm patient ID, procedure to be performed and site of procedure. IV sedation was deemed unnecessary and thus not administered by the RN after DO order, titrated to patient comfort during the course of the procedure while the patient remained responsive to all verbal commands. In the prone position, following sterile prep and drape of the lumbar region, the L5/S1 translaminar space was identified fluoroscopically. The skin was anesthetized via a 25-gauge, 1.5-inch needle with 1% lidocaine solution. At this point, a 22-gauge short bevel spinal needle was atraumatically introduced and advanced under fluoroscopic guidance into the region of the L5/S1 translaminar space. Depth was confirmed on lateral view. Radiological data, including multiple fluoroscopic views of the lumbar spine, reveal a spinal needle at the L5/S1 translaminar space. Lateral views then show placement of the needle in the epidural space. Subsequent views show contrast material flowing superiorly and inferiorly in the epidural space. No vascular or intrathecal uptake is observed. At this point, using loss of resistance technique with saline and air, the epidural space was entered. This was confirmed following negative aspiration with injection of approximately 1.5cc of Isovue 200, showing excellent epidural flow without vascular or intrathecal uptake. At this point, 1 cc of 1% lidocaine solution combined with 4cc or 10mg of dexamethasone and 18mg of betamethasone was injected without incident. The patent tolerated the procedure without signs of symptoms of complications prior to transfer to the recovery area for further monitoring. The patient was then transferred to the recovery area where they were observed for an appropriate period of time after the injection. The patient reported a VAS score of 6 prior to the procedure and a post-procedure VAS of 0. POST OP INSTRUCTIONS The patient was provided a Pain Log to continue to record their response to the target-specific procedure prior to follow-up visit with their referring physician. Additionally, specific post-injection care instructions and a contact number to our office were provided if concerns arise regarding possible complications associated with the procedure are suspected.
[2020-04-03 14:22] VITALS: BP 144/81; PULSE 75; RESP 16; O2SAT 97
== END 2020-04-03 14:30 | disposition home or self-care (01) ==
LOC: RAD 13:38
PROVIDERS: PCP Physician Assistant Medical; Referring Provider Physical Medicine & Rehabilitation; Visit Provider Physical Medicine & Rehabilitation
DX: M51.17 Intervertebral disc disorders with radiculopathy, lumbosacral region; M48.07 Spinal stenosis, lumbosacral region
CPT/HCPCS: 62323; J0702; J1100; J2250; J3010

== ENCOUNTER → 2020-05-26 14:22 | Outpatient (CLI) | payer MEDICARE, OTHER, SELFPAY ==
[2020-05-26 17:40] LABS: COVID19 -Nasal RAPID Negative (Negative)
== END ==
PROVIDERS: PCP Physician Assistant Medical; Visit Provider Physical Medicine & Rehabilitation
DX: Z20.822 Contact with and (suspected) exposure to COVID-19 (principal)
CPT/HCPCS: 87635; C9803

== ENCOUNTER 2020-05-27 12:20 | Outpatient (CLI) | payer MEDICARE, OTHER, SELFPAY ==
[2020-05-27] VITALS (7 sets, daily range): BP systolic 103–132; BP diastolic 55–90; PULSE 69–82; RESP 10–21; TEMP 36.4–36.6; O2SAT 93–100
--- NOTE | 2020-05-27 12:21 | DI.RAD.S_ITS ---
PROCEDURE: PAIN SI JOINT INJECTION MELY COMPARISON: [facility], XA, PAIN SI JOINT INJECTION MELY, 08/07/2019, 12:26. INDICATIONS: SACRAL DISORDER FINDINGS: Spinal needles are seen injecting each sacroiliac joint. The appropriate position of the tips of the needles was confirmed with injection of a small amount of iodinated contrast. IMPRESSION: Intraprocedural examination within normal limits. Dictated by: Lamont Troy M.D. on 05/27/2020 at 12:39 Approved by: Lamont Troy M.D. on 05/27/2020 at 12:40
[2020-05-27] MEDS: fentaNYL 100 MCG/2 ML INJ 50 MCG IV (12:53)
[2020-05-27] MEDS: MIDAZOLAM 5 MG/5 ML VIAL IV (12:55)
[2020-05-27] MEDS: IOPAMIDOL 15 ML VIAL 3 ML INJ (12:57)
[2020-05-27] MEDS: methylPREDNISolone acetate 80 MG/ML VIAL INJ (12:58)
[2020-05-27] MEDS: BUPIVACAINE 0.5% (PF) VIAL 10 ML INJ (12:59)
[2020-05-27] MEDS: methylPREDNISolone acet DEPO 40 MG/ML VIAL 80 MG INJ (13:01)
--- NOTE | 2020-05-27 13:06 | PM.PROC.IR.1 ---
Date/Time/Diagnoses Date of procedure: 05/27/20 Time of procedure: 13:06 Pre-procedure diagnosis: Sacroiliac joint pain/DJD Post-procedure diagnosis: same Procedure Notes Procedure: Fluoroscopic guided contrast controlled bilateral sacroiliac joint injection Indications: Dick is referred by ANNELISE Vann for treatment of right sacroiliac joint DJD Physician: Jareth Sarkar Total Fluoroscopy time (seconds): 12 Total sedation minutes: 10 Complications: none Procedure in detail & Post-procedure care: Description of procedure Fluoroscopic guided, contrast controlled bilateral sacroiliac joint injection Following review of allergies and review of potential side effects and complications, including, but not necessarily limited to, infection, allergic reaction, local tissue breakdown, temporary as well as permanent nerve injury, paralysis, stroke and possible , the patient indicated that they understood and agreed to proceed. An informed consent was signed by the patient, witnessed by a nurse, and placed in the patient's chart. Additionally, other treatment options including modalities, medications, and physical therapy were reviewed with the patient. After review of previous anaesthesic history and IV conscious sedation the patient was deemed safe to proceed with today?s procedure with IV conscious sedation as ASA class II designation. Safety time-out was performed to confirm patient ID, procedure to be performed and site of procedure. IV sedation was accomplished with a combination of 3mg Versed and 50mcg of Fentanyl were administered by the RN after DO order, titrated to patient comfort during the course of the procedure while the patient remained responsive to all verbal commands In the prone position following sterile prep and drape of the pelvic region, the hyper lucency on in the inferior aspect of the sacroiliac joint was identified fluoroscopically the skin was anesthetized be a 25 gauge 1.5 inch needle with approximately 2cc of 1% lidocaine solution. At this point, a 22 gauge 3 in spinal needle was atraumatically introduced and advanced under fluoroscopic guidance into the inferior aspect of the right sacroiliac joint. Following negative aspiration, approximately 0.3cc of Isovue-300 was injected confirming intra-articular placement without vascular uptake. Radiographic data, including multiple fluoroscopic views of the pelvis, reveals a spinal needle in the sacroiliac joint hyper lucent zone. Subsequent view show flow contrast tear superiorly and inferiorly within the joint capsule without vascular intrathecal uptake. At this point a total of 1cc of 0.5% Marcaine was combined with 1cc of 80mg of Depo Medrol was injected without incident. Attention was then refocused the left sacroiliac joint where the procedure was replicated. The procedure tolerated the procedure well without signs or symptoms of complications prior to transfer to the recovery area continued monitoring without incident. The patient was then transferred to the recovery area with a bur observed for an appropriate time after the injection. The patient reverted a vas score of 7 prior to the procedure and post-procedure vas of 1. Postop instructions The patient was provided with a pain like to continue to record the patient's response to the target specific procedure prior to the patient's follow-up visit with the referring physician. Additionally, specific post injection care instructions and a contact number to our office were provided if concerns arise regarding the possible complications associated with procedure are suspected.
== END 2020-05-27 13:21 | disposition home or self-care (01) ==
PROVIDERS: PCP Physician Assistant Medical; Referring Provider Physical Medicine & Rehabilitation; Visit Provider Physical Medicine & Rehabilitation
DX: M53.3 Sacrococcygeal disorders, not elsewhere classified (principal); M46.1 Sacroiliitis, not elsewhere classified
CPT/HCPCS: 27096; 99152; J1030; J1040; J2250; J3010

== ENCOUNTER 2022-02-22 10:41 | Emergency (ER) | payer MEDICARE, SELFPAY ==
[2022-02-22 11:02] VITALS: BP 127/69; PULSE 87; RESP 17; TEMP 36.3; O2SAT 99; BMI 25.0
--- NOTE | 2022-02-22 11:17 | DI.CT.S_ITS ---
PROCEDURE: CT KIDNEY URETER BLADDER (KUB) INDICATIONS: pain Left flank/ + blood in urine/ h/o renal cysts on Rt. TECHNIQUE: Axial sections were acquired from the lung bases to the pubic symphysis. Coronal and sagittal reformats were performed. For radiation dose reduction, the following was used: automated exposure control, adjustment of mA and/or kV according to patient size. COMPARISON: None. FINDINGS: Image quality: Excellent. Lung bases: Unremarkable. Heart: No significant findings. URINARY: Right Kidney: There is a Bosniak cyst of the right kidney which is incompletely characterized on noncontrast CT. It measures approximately 10.1 x 7.2 cm. There is a 2 mm nonobstructing stone at the junction between the middle pole and lower pole. No hydronephrosis. Right Ureter: No hydroureter. Left Kidney: Mild hydronephrosis. Tiny lower pole nonobstructing stones. Left Ureter: Mild hydroureter down to the base of the bladder where there is a small obstructing UVJ stone. Bladder: Very difficult to evaluate secondary to metallic artifact from total hip arthroplasty. There is a left UVJ stone or potentially a stone that has just passed into the bladder. ABDOMEN: Liver: Unremarkable. Gallbladder: Unremarkable. Biliary ducts: Unremarkable. Pancreas: Unremarkable. Spleen: Unremarkable. Adrenal Glands: Unremarkable. Stomach and Bowel: Small hiatal hernia. Previous GE junction surgery. Sigmoid diverticulosis without evidence of diverticulitis. Peritoneum: No abnormal intraperitoneal fluid. No free air. Ventral Wall: No hernia. Abdominal Nodes: No enlarged retroperitoneal or mesenteric lymph nodes. Vessels: Aorta and inferior vena cava are normal in size. PELVIS: Pelvic Organs: Difficult to evaluate secondary to metallic artifact from total right hip arthroplasty. Grossly unremarkable.. Pelvic Nodes: Unremarkable. Miscellaneous: No inguinal hernias are seen. Bones: Lumbar degenerative change. No lytic or blastic bony lesions. No compression fractures. Total right hip arthroplasty results in significant metallic artifact in the pelvis. IMPRESSION: 1. Detail is obscured by metallic artifact in the pelvis. 2. There is a small probable stone either at the left UVJ or recently passed into the bladder. There is mild left hydroureter and hydronephrosis. 3. Multi-septated cyst with calcification involving the right kidney, a Bosniak cyst, measuring 10 cm in maximum diameter. Comment: Recommend renal protocol CT on a nonemergent basis to further evaluate the large cystic lesion of the right kidney. Dictated by: Fernando Holland M.D. on 02/22/2022 at 12:08 Approved by: Fernando Holland M.D. on 02/22/2022 at 12:19
[2022-02-22] MEDS: ONDANSETRON 4 MG/2 ML INJ IV (11:25)
[2022-02-22] MEDS: KETOROLAC 30 MG/ML VIAL 15 MG IV (11:25)
[2022-02-22 11:31] LABS: Bacteria Urine Moderate (10-30); RBC Urine 10-30/HPF (0-5/HPF); Squamous Epithelial Cell Urine 1-5 /HPF (0-5/HPF); WBC Urine 5-10/HPF (0-5/HPF)
[2022-02-22 11:32] LABS: Culture Indicated Urine Specimen Cultured
[2022-02-22 11:35] LABS: Alanine Aminotransferase 18 IU/L (<50); Albumin 3.8 g/dL (3.5-5.0); Albumin Globulin Ratio 1.2 (1.0-2.8); Alkaline Phosphatase 105 U/L (38-126); Aspartate Aminotransferase 22 IU/L (17-59); BUN Creatinine Ratio 24.4 (6-22); Bilirubin Total 0.8 mg/dL (0.2-1.3); Blood Urea Nitrogen 19 mg/dL (9-20); Calcium 8.7 mg/dL (8.4-10.2); Carbon Dioxide 25 mmol/L (22-32); Chloride 106 mmol/L (98-107); Estimated Glomerular Filt Rate > 60 mL/min (>60); Globulin 3.1 g/dL (1.7-4.1); Glucose 133 mg/dL (80-110); HEMOLYSIS < 15 (0-50); Lipase 26 U/L (23-300); Potassium 3.8 mmol/L (3.4-5.1); Sodium 139 mmol/L (137-145); Total Protein 6.9 g/dL (6.3-8.2)
[2022-02-22 11:42] LABS: Add Manual Diff / Slide Review NO; Basophils Absolute Auto 100 /uL (0-100); Basophils Percent Auto 1.5 % (0-2); Eosinophils Absolute Auto 300 /uL (0-450); Eosinophils Percent Auto 5.2 % (2-4); Hematocrit 43.9 % (41-53); Hemoglobin 14.7 g/dL (13.5-17.5); Lymphocytes Absolute Auto 1700 /uL (1100-4500); Lymphocytes Percent Auto 27.6 % (25-40); Mean Corpuscular HGB Conc 33.4 % (30-36); Mean Corpuscular Hemoglobin 31.5 PG (26-34); Mean Corpuscular Volume 94.4 fL (80-100); Monocytes Absolute Auto 500 /uL (0-900); Monocytes Percent Auto 9.1 % (3-14); Neutrophils Absolute Auto 3400 /uL (1500-7000); Neutrophils Percent Auto 56.6 % (50-75); Platelet Count 179 X10^3/uL (150-400); Red Blood Cell Count 4.64 X10^6/uL (4.5-5.9); Red Cell Distribution Width 14.8 % (11.6-14.8)
[2022-02-22 12:59] VITALS: BP 126/83; PULSE 65; RESP 16; O2SAT 97
--- NOTE | 2022-02-22 14:58 | ED.MALEGU ---
HPI - Male Genitourinary <Bushra Scherer PA-C - Last Filed: 02/22/22 15:08> General Chief complaint: Urogenital-Male Stated complaint: might have a kidney stone on LT side Time Seen by Provider: 02/22/22 12:07 Source: patient Mode of arrival: Ambulatory History of Present Illness HPI Narrative: 76-year-old male with past medical history Bosniak cyst of the right kidney presents to the ED with 1 day of left-sided flank pain. Patient states that he has had 6 days of hematuria, his flank pain started this morning. Patient denies a history of kidney stones. Patient denies fever, chills, nausea, vomiting, chest pain, shortness of breath, abdominal pain, lightheadedness, dizziness, syncope. Patient denies dysuria. Patient has a urology appointment to follow-up on his Bosniak cyst on the 02 of March. Related Data Home Medications Medication Instructions Recorded Confirmed dexlansoprazole 60 mg 60 mg PO DAILY 08/11/17 05/07/20 capsule,biphase delayed release (Dexilant) acetaminophen 325 mg capsule 650 mg PO Q6H PRN 08/22/19 05/07/20 (Tylenol) ibuprofen 200 mg capsule 200 mg PO Q6H PRN 08/22/19 05/07/20 Previous Rx's Medication Instructions Recorded ciprofloxacin HCl 500 mg tablet 500 mg PO BID 7 days #14 tabs 02/22/22 (Cipro) nitrofurantoin 100 mg PO Q12H 5 days #10 caps 02/23/22 monohydrate/macrocrystals 100 mg capsule (Macrobid) Allergies Allergy/AdvReac Type Severity Reaction Status Date / Time Penicillins Allergy Severe Anaphylaxis Verified 02/22/22 11:07 codeine AdvReac Unknown Nausea Verified 02/22/22 11:07 Review of Systems <Bushra Scherer PA-C - Last Filed: 02/22/22 15:08> Review of Systems ROS Unobtainable: All systems reviewed & are unremarkable except as noted in HPI and below Constitutional Constitutional: Denies chills, Denies fatigue, Denies fever(s), Denies frequent falls, Denies lethargy and Denies weakness Eyes Eyes: Denies change in vision, Denies eye discharge, Denies irritation and Denies loss of vision ENT Ears, Nose, Mouth, and Throat: Denies change in voice, Denies dizziness, Denies neck pain, Denies sore throat and Denies throat swelling Cardiovascular Cardiovascular: Denies chest pain, Denies irregular heart rhythm, Denies lightheadedness, Denies palpitations, Denies dyspnea, Denies dyspnea on exertion and Denies orthopnea Respiratory Respiratory: Denies cough, Denies dyspnea, Denies dyspnea on exertion and Denies wheezing Gastrointestinal Gastrointestinal: Denies abdominal pain, Denies change in bowel habits, Denies diarrhea, Denies nausea and Denies vomiting Genitourinary Genitourinary: Denies hematuria, Denies flank pain, Denies urinary incontinence and Denies urinary urgency Comments: Left-sided flank pain Musculoskeletal Musculoskeletal: Denies back pain, Denies muscle weakness, Denies neck pain, Denies numbness and Denies tingling Integumentary/Breasts Skin/Breast: Denies pruritus, Denies erythema, Denies rash and Denies wounds Neurologic Neurologic: Denies behavioral changes, Denies confusion, Denies dizziness, Denies frequent falls, Denies loss of vision, Denies numbness, Denies tingling and Denies weakness Psychiatric Psychiatric: Denies anxiety, Denies behavioral changes, Denies confusion, Denies depression, Denies homicidal ideation and Denies suicidal ideation Endocrine Endocrine: Denies fatigue, Denies flushing and Denies palpitations Hematologic/Lymphatic Hematologic/Lymphatic: Denies easy bruising Allergic/Immunologic Allergic/Immunologic: Denies urticaria, Denies throat swelling and Denies wheezing Patient History <Bushra Scherer PA-C - Last Filed: 02/22/22 15:08> Medical History Facet arthropathy, lumbar Sacral dysfunction Surgical History History of total right knee replacement Family History Unknown No pertinent family history Social History marital status: Smoking Status: Former smoker Smoking Status: Former smoker alcohol intake frequency: holidays/special occasions only Substance Use Type: does not use Exam <Bushra Scherer PA-C - Last Filed: 02/22/22 15:08> Narrative Exam Narrative: Const General:?cooperative, healthy appearing and comfortable [facility] Head:?normal to inspection Ears:?hearing grossly normal bilaterally Nose:?external nose normal Face and sinus:?normal facial exam and sinuses nontender Mouth:?oral mucosae normal Throat:?posterior oropharynx normal Eyes General:?appearance normal, both eyes and all related structures Neck Neck:?normal visual inspection and no lymphadenopathy noted Resp Effort & Inspection:?normal respiratory effort Auscultation:?clear to auscultation bilaterally Cardio Rate:?regular rate Rhythm:?regular rhythm GI Abdomen is soft, nondistended, nontender to palpation. There is no CVA tenderness. Neuro General:?patient alert, patient awake and patient oriented x3 Initial Vital Signs Initial Vital Signs: Vital Signs Temperature 97.4 F L 02/22/22 11:02 Pulse Rate 87 02/22/22 11:02 Respiratory Rate 17 02/22/22 11:02 Blood Pressure 127/69 02/22/22 11:02 Pulse Oximetry 99 02/22/22 11:02 Oxygen Delivery Method 02/22/22 11:02 <Eva Christy DO - Last Filed: 02/23/22 09:48> Initial Vital Signs Initial Vital Signs: Vital Signs Temperature 97.4 F L 02/22/22 11:02 Pulse Rate 87 02/22/22 11:02 Respiratory Rate 17 02/22/22 11:02 Blood Pressure 127/69 02/22/22 11:02 Pulse Oximetry 99 02/22/22 11:02 Oxygen Delivery Method 02/22/22 11:02 Course <Bushra Scherer PA-C - Last Filed: 02/22/22 15:08> Orders Ordered: Discontinued Medications Ketorolac Tromethamine (Ketorolac 30 Mg/Ml Vial) 15 mg IV NOW ONE Stop: 02/22/22 11:18 Last Admin: 02/22/22 11:25 Dose: 15 mg Documented By: LOIS Morphine Sulfate (Morphine 4 Mg/Ml Inj) 4 mg IV NOW ONE Stop: 02/22/22 12:30 Last Admin: 02/22/22 12:39 Dose: Not Given Documented By: LOIS Ondansetron HCl (Ondansetron 4 Mg/2 Ml Inj) 4 mg IV NOW PRN PRN Reason: Nausea And Vomiting Ondansetron HCl (Ondansetron 4 Mg/2 Ml Inj) 4 mg IV NOW ONE Stop: 02/22/22 11:18 Last Admin: 02/22/22 11:25 Dose: 4 mg Documented By: LOIS Vital Signs Vital signs: Vital Signs - 8 hr 02/22/22 11:02 02/22/22 12:59 Temperature 97.4 F L Pulse Rate 87 65 Respiratory Rate 17 16 Blood Pressure 127/69 126/83 Pulse Oximetry 99 97 Oxygen Delivery Method Room Air Room Air <Eva Christy DO - Last Filed: 02/23/22 09:48> Orders Ordered: Discontinued Medications Ketorolac Tromethamine (Ketorolac 30 Mg/Ml Vial) 15 mg IV NOW ONE Stop: 02/22/22 11:18 Last Admin: 02/22/22 11:25 Dose: 15 mg Documented By: LOIS Morphine Sulfate (Morphine 4 Mg/Ml Inj) 4 mg IV NOW ONE Stop: 02/22/22 12:30 Last Admin: 02/22/22 12:39 Dose: Not Given Documented By: LOIS Ondansetron HCl (Ondansetron 4 Mg/2 Ml Inj) 4 mg IV NOW PRN PRN Reason: Nausea And Vomiting Ondansetron HCl (Ondansetron 4 Mg/2 Ml Inj) 4 mg IV NOW ONE Stop: 02/22/22 11:18 Last Admin: 02/22/22 11:25 Dose: 4 mg Documented By: LOIS Vital Signs Vital signs: Vital Signs - 8 hr 02/22/22 11:02 02/22/22 12:59 Temperature 97.4 F L Pulse Rate 87 65 Respiratory Rate 17 16 Blood Pressure 127/69 126/83 Pulse Oximetry 99 97 Oxygen Delivery Method Room Air Room Air MDM - Male Genitourinary <Bsuhra Scherer PA-C - Last Filed: 02/22/22 15:08> Lab Data Result diagrams: 02/22/22 11:15 02/22/22 11:15 Labs: Lab Results 02/22/22 02/22/22 02/22/22 Range/Units 11:15 11:15 11:15 WBC 6.0 (4.5-11.0) X10^3/uL RBC 4.64 (4.5-5.9) X10^6/uL Hgb 14.7 (13.5-17.5) g/dL Hct 43.9 (41-53) % MCV 94.4 (80-100) fL MCH 31.5 (26-34) PG MCHC 33.4 (30-36) % RDW 14.8 (11.6-14.8) % Plt Count 179 (150-400) X10^3/uL Neut % (Auto) 56.6 (50-75) % Lymph % (Auto) 27.6 (25-40) % [place] % (Auto) 9.1 (3-14) % Eos % (Auto) 5.2 H (2-4) % Baso % (Auto) 1.5 (0-2) % Neut # (Auto) 3400 (6050-1583) /uL Lymph # (Auto) 1700 (5250-4642) /uL [place] # (Auto) 500 (0-900) /uL Eos # (Auto) 300 (0-450) /uL Baso # (Auto) 100 (0-100) /uL Sodium 139 (137-145) mmol/L Potassium 3.8 (3.4-5.1) mmol/L Chloride 106 (98-107) mmol/L Carbon Dioxide 25 (22-32) mmol/L BUN 19 (9-20) mg/dL Creatinine 0.78 (0.66-1.25) mg/dL Estimated GFR > 60 (>60) mL/min BUN/Creatinine Ratio 24.4 H (6-22) Glucose 133 H (80-110) mg/dL Calcium 8.7 (8.4-10.2) mg/dL Total Bilirubin 0.8 (0.2-1.3) mg/dL AST 22 (17-59) IU/L ALT 18 (<50) IU/L Alkaline Phosphatase 105 (38-126) U/L Total Protein 6.9 (6.3-8.2) g/dL Albumin 3.8 (3.5-5.0) g/dL Globulin 3.1 (1.7-4.1) g/dL Albumin/Globulin Ratio 1.2 (1.0-2.8) Lipase 26 (23-300) U/L Urine RBC 10-30/hpf H (0-5/HPF) Urine WBC 5-10/hpf H (0-5/HPF) Ur Squamous Epith Cells 1-5 /hpf (0-5/HPF) Urine Bacteria Moderate (10-30) H (None) Ur Culture Indicated? Specimen cultured Urine Dip Bedside Urine Glucose Negative Bedside Urine Bilirubin - Negative Bedside Urine Ketone - Negative Urine Specific [place] 1.020 Bedside Urine Occult Blood +++ Bedside Urine pH 6.0 Bedside Urine Protein +/- 15 Bedside Urine Urobilinogen - Negative Bedside Urine Nitrite - Negative Bedside Urine Leukocytes - Negative Esterase Imaging Data CT scan - abdomen/pelvis: Radiologist's Impression: PROCEDURE:? CT KIDNEY URETER BLADDER (KUB) ? INDICATIONS:? pain Left flank/ + blood in urine/ h/o renal cysts on Rt. ? TECHNIQUE:? Axial sections were acquired from the lung bases to the pubic symphysis.? Coronal and sagittal reformats were performed.? For radiation dose reduction, the following was used: ?automated exposure control, adjustment of mA and/or kV according to patient size.? ? COMPARISON:? None. ? FINDINGS:? Image quality:? Excellent.? ? Lung bases:? Unremarkable.? ? Heart:? No significant findings. ? URINARY: Right Kidney:? There is a Bosniak cyst of the right kidney which is incompletely characterized on noncontrast CT.? It measures approximately 10.1 x 7.2 cm.? There is a 2 mm nonobstructing stone at the junction between the middle pole and lower pole.? No hydronephrosis. Right Ureter:? No hydroureter.? ? Left Kidney:? Mild hydronephrosis.? Tiny lower pole nonobstructing stones.? Left Ureter:? Mild hydroureter down to the base of the bladder where there is a small obstructing UVJ stone. ? Bladder:? Very difficult to evaluate secondary to metallic artifact from total hip arthroplasty.? There is a left UVJ stone or potentially a stone that has just passed into the bladder. ? ABDOMEN: Liver:? Unremarkable.? ? Gallbladder:? Unremarkable.? ? Biliary ducts:? Unremarkable.? ? Pancreas:? Unremarkable.? ? Spleen:? Unremarkable.? ? Adrenal Glands:? Unremarkable.? ? ? Stomach and Bowel:? Small hiatal hernia.? Previous GE junction surgery.? Sigmoid diverticulosis without evidence of diverticulitis.? Peritoneum:? No abnormal intraperitoneal fluid.? No free air.? ? Ventral Wall: ? No hernia.? Abdominal Nodes:? No enlarged retroperitoneal or mesenteric lymph nodes.? Vessels:? Aorta and inferior vena cava are normal in size.? ? PELVIS: Pelvic Organs:? Difficult to evaluate secondary to metallic artifact from total right hip arthroplasty.? Grossly unremarkable..? ? Pelvic Nodes: Unremarkable. Miscellaneous: No inguinal hernias are seen. ? ? ? Bones:? Lumbar degenerative change.? No lytic or blastic bony lesions.? No compression fractures.? Total right hip arthroplasty results in significant metallic artifact in the pelvis. ? ? IMPRESSION:? ? 1. Detail is obscured by metallic artifact in the pelvis. ? 2. There is a small probable stone either at the left UVJ or recently passed into the bladder.? There is mild left hydroureter and hydronephrosis. ? 3. Multi-septated cyst with calcification involving the right kidney, a Bosniak cyst, measuring 10 cm in maximum diameter. ? Comment:? Recommend renal protocol CT on a nonemergent basis to further evaluate the large cystic lesion of the right kidney. ? ? Dictated by: Fernando Holland M.D. on 02/22/2022 at 12:08 ? ? Approved by: Fernando Holland M.D. on 02/22/2022 at 12:19 ? [facility] Narrative Medical decision making narrative: 76-year-old male with past medical history Bosniak cyst of the right kidney presents to the ED with 1 day of left-sided flank pain. Concern for kidney stone versus UTI versus pyelonephritis versus other intra-abdominal pathology versus other. Obtained labs, UA, CT abdomen pelvis. CT abdomen pelvis shows the pre-existing Bosniak cyst of the right kidney. CT also shows possible kidney stone either in the bladder or in the left UVJ. Labs within normal limits. UA positive for UTI. Patient's symptoms improved with Toradol. Patient again started experiencing pain, but pain spontaneously subsided after which patient was pain-free. It is likely that patient had the kidney stone in the left UVJ, he passed it which relieved his pain. Patient agrees to follow-up with his urologist next week regarding this problem as well. Patient started on antibiotics for the UTI. The ED return precautions discussed with patient. Patient verbalized understanding. <Eva Christy, DO - Last Filed: 02/23/22 09:48> Lab Data Labs: Lab Results 1202/22/22 02/22/22 Range/Units 11:15 11:15 11:15 WBC 6.0 (4.5-11.0) X10^3/uL RBC 4.64 (4.5-5.9) X10^6/uL Hgb 14.7 (13.5-17.5) g/dL Hct 43.9 (41-53) % MCV 94.4 (80-100) fL MCH 31.5 (26-34) PG MCHC 33.4 (30-36) % RDW 14.8 (11.6-14.8) % Plt Count 179 (150-400) X10^3/uL Neut % (Auto) 56.6 (50-75) % Lymph % (Auto) 27.6 (25-40) % [place] % (Auto) 9.1 (3-14) % Eos % (Auto) 5.2 H (2-4) % Baso % (Auto) 1.5 (0-2) % Neut # (Auto) 3400 (8646-7511) /uL Lymph # (Auto) 1700 (9544-1078) /uL [place] # (Auto) 500 (0-900) /uL Eos # (Auto) 300 (0-450) /uL Baso # (Auto) 100 (0-100) /uL Sodium 139 (137-145) mmol/L Potassium 3.8 (3.4-5.1) mmol/L Chloride 106 (98-107) mmol/L Carbon Dioxide 25 (22-32) mmol/L BUN 19 (9-20) mg/dL Creatinine 0.78 (0.66-1.25) mg/dL Estimated GFR > 60 (>60) mL/min BUN/Creatinine Ratio 24.4 H (6-22) Glucose 133 H (80-110) mg/dL Calcium 8.7 (8.4-10.2) mg/dL Total Bilirubin 0.8 (0.2-1.3) mg/dL AST 22 (17-59) IU/L ALT 18 (<50) IU/L Alkaline Phosphatase 105 (38-126) U/L Total Protein 6.9 (6.3-8.2) g/dL Albumin 3.8 (3.5-5.0) g/dL Globulin 3.1 (1.7-4.1) g/dL Albumin/Globulin Ratio 1.2 (1.0-2.8) Lipase 26 (23-300) U/L Urine RBC 10-30/hpf H (0-5/HPF) Urine WBC 5-10/hpf H (0-5/HPF) Ur Squamous Epith Cells 1-5 /hpf (0-5/HPF) Urine Bacteria Moderate (10-30) H (None) Ur Culture Indicated? Specimen cultured Urine Dip Bedside Urine Glucose Negative Bedside Urine Bilirubin - Negative Bedside Urine Ketone - Negative Urine Specific [place] 1.020 Bedside Urine Occult Blood +++ Bedside Urine pH 6.0 Bedside Urine Protein +/- 15 Bedside Urine Urobilinogen - Negative Bedside Urine Nitrite - Negative Bedside Urine Leukocytes - Negative Esterase Discharge Plan Departure Patient Disposition: Home Clinical Impression: Kidney stones Instructions: DI for Kidney Stones, DI for Urinary Tract Infection (UTI) Activity Restrictions/Additional Instructions: You were evaluated in the ED today for left-sided flank pain. Your CT showed a possible stone either in your bladder or just in the junction to your bladder. Given your history and symptoms, it is likely that you had a stone leading up to the bladder, that you just passed in the emergency room, which caused resolution of your pain. You will be sent home with a strainer, so you can save the stone to take with you to the urologist. You have a appointment with your urologist on the 02 of March, please follow-up with him regarding the kidney stone as well as the incidental finding in the CT with this cyst in the right kidney that he is already following you for. If your symptoms occur again, you have persistent nausea and vomiting, please return to the ED for further evaluation. Prescriptions: New ciprofloxacin HCl [Cipro] 500 mg tablet 500 mg PO BID 7 Days Qty: 14 0RF nitrofurantoin monohyd/m-cryst [Macrobid] 100 mg capsule 100 mg PO Q12H 5 Days Qty: 10 0RF Rx Instructions: must administer with a meal/food No Action acetaminophen [Tylenol] 325 mg capsule 650 mg PO Q6H PRN ibuprofen 200 mg capsule 200 mg PO Q6H PRN dexlansoprazole [Dexilant] 60 mg capsule,biphase delayed releas 60 mg PO DAILY Referrals: Skyler Vann PA-C [Primary Care Provider] - Visit Report Forms: Patient Portal/API <Eva Christy, - Last Filed: 02/23/22 09:48> Cosign ED Attending Cosignature Attestation: I was immediately available in the department for consultation. Documentation has been reviewed. I agree with assessment and plan.
== END 2022-02-22 13:03 | disposition home or self-care (01) ==
PROVIDERS: Emergency Medicine; Emergency Provider Student in an Organized Health Care Education/Training Program; PCP Physician Assistant Medical
DX: N20.0 Calculus of kidney (principal)
CPT/HCPCS: 36415; 74176; 80053; 81003; 81015; 83690; 85025; 87086; 96374; 96375; 99284; J1885; J2405

== ENCOUNTER → 2022-07-28 15:02 | Outpatient (CLI) | payer MEDICARE, SELFPAY ==
--- NOTE | 2022-07-28 15:03 | DI.RAD.S_ITS ---
PROCEDURE: XR THORACIC SPINE 3V INDICATIONS: Chronic progressive thoracic pain with history of fracture TECHNIQUE: 3 views of the thoracic spine were acquired. COMPARISON: None. FINDINGS: Bones: Mild multilevel degenerative changes without traumatic subluxation . Minimal endplate deformities may be degenerative . Soft tissues: Surgical clips project over the left upper abdomen. IMPRESSION: Mild degenerative changes. No acute radiographic abnormality. If there is high concern for further derangement, consider MRI evaluation. Dictated by: Dick Arzate M.D. on 07/28/2022 at 16:22 Approved by: Dick Arzate M.D. on 07/28/2022 at 16:23
== END ==
PROVIDERS: PCP Physician Assistant Medical; Referring Provider Physical Medicine & Rehabilitation; Visit Provider Physical Medicine & Rehabilitation
DX: M19.90 Unspecified osteoarthritis, unspecified site (principal); M48.04 Spinal stenosis, thoracic region; M48.061 Spinal stenosis, lumbar region without neurogenic claudication; M53.3 Sacrococcygeal disorders, not elsewhere classified; M47.816 Spondylosis without myelopathy or radiculopathy, lumbar region; M19.032 Primary osteoarthritis, left wrist; M19.031 Primary osteoarthritis, right wrist; M19.011 Primary osteoarthritis, right shoulder; M19.012 Primary osteoarthritis, left shoulder; M16.0 Bilateral primary osteoarthritis of hip; M70.61 Trochanteric bursitis, right hip; M70.62 Trochanteric bursitis, left hip; Z68.24 Body mass index [BMI] 24.0-24.9, adult
CPT/HCPCS: 72072; 99214

== ENCOUNTER 2022-09-02 10:09 | Outpatient (CLI) | payer MEDICARE, SELFPAY ==
[2022-09-02] VITALS (10 sets, daily range): BP systolic 100–129; BP diastolic 57–74; PULSE 62–658; RESP 14–22; O2SAT 97–100
--- NOTE | 2022-09-02 10:10 | DI.RAD.S_ITS ---
PROCEDURE: PAIN L/S TRANSFORAM INJECT MELY COMPARISON: None. INDICATIONS: SPONDYLOSIS FINDINGS: Fluoroscopic spot filming was performed to verify placement of spinal needles at the left and right L4-5 levels, as labeled on the films. Appropriate locations of the needle tips was confirmed by injection of iodinated contrast. IMPRESSION: Intraprocedural examination demonstrates appropriate needle position. Approved by: Valdo Perkins M.D. on 09/02/2022 at 16:27
[2022-09-02] MEDS: MIDAZOLAM 2 MG/2 ML VIAL IV ×2 (11:44→11:50)
[2022-09-02] MEDS: BETAMETHASONE 30 MG/5 ML MDV 12 MG INJ (11:51)
[2022-09-02] MEDS: DEXAMETHASONE 10 MG/ML VIAL 20 MG INJ (11:51)
[2022-09-02] MEDS: BUPIVACAINE 0.25% (PF) VIAL 2 ML INJ (11:51)
[2022-09-02] MEDS: IOPAMIDOL 15 ML VIAL 3 ML INJ (11:52)
--- NOTE | 2022-09-02 12:05 | PM.PROC.IR.1 ---
Date/Time/Diagnoses Date of procedure: 09/02/22 Time of procedure: 12:05 Pre-procedure diagnosis: 1. FORAMINAL STENOSIS WITH LE SYMPTOMS Procedure Notes Procedure: 1. FLUOROSCOPICALLY GUIDED CONTRAST CONTROLLED TRANSFORAMINAL EPIDURAL STEROID INJECTION - BILATERAL L4/5 TFESI Indications: Dick is referred by ANNELISE Vann for treatment of Foraminal Stenosis with bilateral LE Symptoms Physician: Jareth Sarkar Total Fluoroscopy time (seconds): 29 Total sedation minutes: 17 Complications: none Procedure in detail & Post-procedure care: FINDINGS Foraminal Nerve Root Compression secondary to disc disease and facet hypertrophy DESCRIPTION OF PROCEDURE Following review of allergy and review of potential side effects and complications, including, but not necessarily limited to, infection, allergic reaction, local tissue breakdown, stroke, temporary or permanent nerve injury, paralysis, and possible , the patient indicated that the patient understood and agreed to proceed. An informed consent document was signed by the patient, witnessed by a nurse, and placed in the patient's chart. Additionally, other treatment options including medications, modalities, and physical therapy were reviewed with the patient. After review of previous anaesthesic history and IV conscious sedation the patient was deemed safe to proceed with today?s procedure with IV conscious sedation as ASA class II designation. Safety time-out was performed to confirm patient ID, procedure to be performed and site of procedure. IV sedation was accomplished with a combination of 4mg of Versed was administered by the RN after DO order, titrated to patient comfort during the course of the procedure while the patient remained responsive to all verbal commands In the prone position following sterile prep and drape of the lumbar region, the right L4/5 posterior neuroforamen was identified fluoroscopically. The skin was anesthetized via a 25-gauge 1.5-inch needle with 1% lidocaine solution. At this point, a 25-gauge 3.5-inch spinal needle was atraumatically introduced and advanced under fluoroscopic guidance through the posterior right L4/5 neuroforamen to approximately the anterior aspect of the canal. Depth was confirmed on lateral view. Following negative aspiration, injection of approximately 1.5cc of Isovue 200 under live fluoroscopy in the AP view confirmed excellent flow along the nerve root, into the epidural space without vascular or intrathecal uptake observed Radiological data, including multiple fluoroscopic views of the lumbosacral spine, reveal a spinal needle at the right L4/5 posterior neuroforamen. Subsequent views show flow of contrast material flowing superiorly and inferiorly along the nerve root confirming epidural flow. Subsequently, a test dose of 1.5cc of 1% lidocaine solution was administered and patient was observed for two minutes for signs or symptoms of complications, including abdominal pain, shortness of breath, bilateral upper or lower extremity weakness, nausea and vomiting, prior to steroid injection. At this point, a total of 3cc or 20mg of dexamethasone and 6mg betamethasone was injected without incident. Attention was then refocused to the left L4/5 level where the identical procedure was replicated. The procedure tolerated the procedure well without signs or symptoms of complications prior to transfer to the recovery area continued monitoring without incident. The patient was then transferred to the recovery area where they were observed for an appropriate time after the injection. The patient reported a VAS score of 7 prior to the procedure and a post-procedure VAS of 0. POST OP INSTRUCTIONS The patient was provided a Pain Log to continue to record their response to the target-specific procedure prior to follow-up visit with their referring physician. Additionally, specific post-injection care instructions and a contact number to our office were provided if concerns arise regarding possible complications associated with the procedure are suspected.
== END 2022-09-02 12:25 | disposition home or self-care (01) ==
PROVIDERS: PCP Physician Assistant Medical; Referring Provider Physical Medicine & Rehabilitation; Visit Provider Physical Medicine & Rehabilitation
DX: M48.061 Spinal stenosis, lumbar region without neurogenic claudication (principal); M51.16 Intervertebral disc disorders with radiculopathy, lumbar region; M47.26 Other spondylosis with radiculopathy, lumbar region
CPT/HCPCS: 64483; 99152; J0702; J1100; J2250; J3490

== ENCOUNTER 2022-12-07 13:54 | Outpatient (CLI) | payer MEDICARE, SELFPAY ==
--- NOTE | 2022-12-07 13:55 | DI.RAD.S_ITS ---
PROCEDURE: PAIN SI JOINT INJECTION INDICATIONS: SACROILIAC DISORDER COMPARISON: [facility], RF, LUMBAR SPINE INTERIAMINAR, 07/20/2022, 11:21. [facility], XA, PAIN L/S TRANSFORAM INJECT MELY, 09/02/2022, 11:47. FINDINGS: On these intraprocedural images, there is a spinal needle seen overlying the inferior aspect of the left sacroiliac joint. Appropriate position of the tip of the needle was confirmed by injection of a small amount of iodinated contrast. IMPRESSION: Successful sacroiliac joint injection. Dictated by: Lamont Troy M.D. on 12/07/2022 at 16:09 Approved by: Lamont Troy M.D. on 12/07/2022 at 16:10
[2022-12-07 14:02] VITALS: BP 130/72; PULSE 66; RESP 15; TEMP 36.1; O2SAT 99
[2022-12-07 14:43] VITALS: BP 125/74; PULSE 67; RESP 13; O2SAT 100
[2022-12-07] MEDS: iopamidoL 15 ML VIAL 3 ML INJ (14:44)
[2022-12-07] MEDS: BUPIVACAINE 0.5% (PF) 10 ML VIAL 2 ML INJ (14:44)
[2022-12-07] MEDS: BETAMETHASONE 30 MG/5 ML MDV 6 MG INJ (14:44)
[2022-12-07 14:48] VITALS: BP 127/77; PULSE 63; RESP 16; O2SAT 99
[2022-12-07 14:49] VITALS: BP 130/68; PULSE 64; RESP 22; O2SAT 99
--- NOTE | 2022-12-07 14:54 | PM.PROC.IR.1 ---
Date/Time/Diagnoses Date of procedure: 12/07/22 Time of procedure: 14:55 Pre-procedure diagnosis: Sacroiliac Joint Pain/DJD Post-procedure diagnosis: same Procedure Notes Procedure: Fluoroscopically guided contrast controlled left sacroiliac joint injection Indications: Dick is referred by Dr. Herrera for treatment of left sacroiliac joint DJD Physician: Jareth Sarkar Total Fluoroscopy time (seconds): 7 Total sedation minutes: 0 Complications: none Procedure in detail & Post-procedure care: DESCRIPTION OF PROCEDURE Fluoroscopic guided, contrast controlled left sacroiliac joint injection Following review of allergies and review of potential side effects and complications, including, but not necessarily limited to, infection, allergic reaction, local tissue breakdown, temporary as well as permanent nerve injury, paralysis, stroke and possible , the patient indicated that they understood and agreed to proceed. An informed consent was signed by the patient, witnessed by a nurse, and placed in the patient's chart. Additionally, other treatment options including modalities, medications, and physical therapy were reviewed with the patient. After review of previous anaesthesic history and IV conscious sedation the patient was deemed safe to proceed with today?s procedure with IV conscious sedation as ASA class II designation. Safety time-out was performed to confirm patient ID, procedure to be performed and site of procedure. IV sedation was deemed unnecessary and thus not yadministered by the RN after DO order, titrated to patient comfort during the course of the procedure while the patient remained responsive to all verbal commands. In the prone position following sterile prep and drape of the pelvic region, the hyper lucency on in the inferior aspect of the left sacroiliac joint was identified fluoroscopically the skin was anesthetized be a 25 gauge 1 eventual with approximately 2cc of 1% lidocaine solution. At this point, a 22 gauge 3inch spinal needle was atraumatically introduced and advanced under fluoroscopic guidance into the inferior aspect of the left sacroiliac joint. Following negative aspiration, approximately 0.3cc of Isovue-300 was injected confirming intra-articular placement without vascular uptake. Radiographic data, including multiple fluoroscopic views of the pelvis, reveals a spinal needle in the left sacroiliac joint hyper lucent zone. Subsequent view show flow contrast tear superiorly and inferiorly within the joint capsule without vascular intrathecal uptake. At this point a total of 1cc or 0.5% Marcaine was combined with 1cc of 6mg of betamethasone was injected without incident. The patient tolerated the procedure well without signs or symptoms of complications prior to transfer to the recovery area for further monitoring. The patient was then transferred to the recovery area with a bur observed for an appropriate time after the injection. The patient reverted a vas score of 7 prior to the procedure and postprocedure vas of 1. POSTOP INSTRUCTIONS The patient was provided with a pain like to continue to record the patient's response to the target specific procedure prior to the patient's follow-up visit with the referring physician. Additionally, specific post injection care instructions and a contact number to our office were provided if concerns arise regarding the possible complications associated with procedure are suspected.
[2022-12-07 14:55] VITALS: BP 174/74; PULSE 65; RESP 16; O2SAT 98
[2022-12-07 15:00] VITALS: BP 156/70; PULSE 69; RESP 15; O2SAT 99
== END 2022-12-07 15:08 | disposition home or self-care (01) ==
LOC: RAD 13:55
PROVIDERS: PCP Family Medicine; Referring Provider Physical Medicine & Rehabilitation; Visit Provider Physical Medicine & Rehabilitation
DX: M53.3 Sacrococcygeal disorders, not elsewhere classified (principal); M46.1 Sacroiliitis, not elsewhere classified
CPT/HCPCS: 27096; J0702

== ENCOUNTER 2023-06-30 13:49 | Outpatient (CLI) | payer MEDICARE, SELFPAY ==
[2023-06-30 14:30] VITALS: BP 136/69; PULSE 62; RESP 16; TEMP 36.6; O2SAT 98
--- NOTE | 2023-06-30 14:30 | DI.RAD.S_ITS ---
PROCEDURE: PAIN SI JOINT INJECTION INDICATIONS: Right Sacroiliac Joint Injection COMPARISON: [facility], , PAIN SI JOINT INJECTION, 12/07/2022, 14:43. FINDINGS: Fluoroscopic spot filming was performed to verify placement of spinal needles at the right sacroiliac joint as labeled on the films. Appropriate location(s) of the needle tip(s) was confirmed by injection of iodinated contrast. IMPRESSION: Intra procedural examination demonstrating appropriate positions of the needles. Dictated by: Umair Lackey M.D. on 06/30/2023 at 15:58 Approved by: Umair Lackey M.D. on 06/30/2023 at 15:58
--- NOTE | 2023-06-30 15:05 | PM.PROC.IR.1 ---
Date/Time/Diagnoses Date of procedure: 06/30/23 Time of procedure: 15:17 Pre-procedure diagnosis: Sacroiliac joint pain/DJD Post-procedure diagnosis: same Procedure Notes Procedure: Fluoroscopically guided contrast controlled right sacroiliac joint injection Indications: Dick is referred by Dr. Herrera for treatment of right sacroiliac joint DJD Physician: Jareth Sarkar Total Fluoroscopy time (seconds): 7 Total sedation minutes: 0 Complications: none Procedure in detail & Post-procedure care: DESCRIPTION OF PROCEDURE Fluoroscopically guided, contrast controlled right sacroiliac joint injection Following review of allergies and review of potential side effects and complications, including, but not necessarily limited to, infection, allergic reaction, local tissue breakdown, temporary as well as permanent nerve injury, paralysis, stroke and possible , the patient indicated that they understood and agreed to proceed. An informed consent was signed by the patient, witnessed by a nurse, and placed in the patient's chart. Additionally, other treatment options including modalities, medications, and physical therapy were reviewed with the patient. After review of previous anaesthesic history and IV conscious sedation the patient was deemed safe to proceed with today?s procedure with IV conscious sedation as ASA class II designation. Safety time-out was performed to confirm patient ID, procedure to be performed and site of procedure. IV sedation was deemed unnecessary and thus not administered by the RN after DO order, titrated to patient comfort during the course of the procedure while the patient remained responsive to all verbal commands In the prone position following sterile prep and drape of the pelvic region, the hyper lucency on in the inferior aspect of the sacroiliac joint was identified fluoroscopically the skin was anesthetized be a 25 gauge 1 eventual with approximately 2 cc of 1% lidocaine solution. At this point, a 22 gauge 3 in spinal needle was atraumatically introduced and advanced under fluoroscopic guidance into the inferior aspect of the right sacroiliac joint. Following negative aspiration, approximately 0.3cc of Isovue-300 was injected confirming intra-articular placement without vascular uptake. Radiographic data, including multiple fluoroscopic views of the pelvis, reveals a spinal needle in the sacroiliac joint hyper lucent zone. Subsequent view show flow contrast tear superiorly and inferiorly within the joint capsule without vascular intrathecal uptake. At this point a total of 1cc of 0.5% Marcaine was combined with 1cc of 6 mg of betamethasone was injected without incident. The procedure tolerated the procedure well without signs or symptoms of complications prior to transfer to the recovery area continued monitoring without incident. The patient was then transferred to the recovery area with a bur observed for an appropriate time after the injection. The patient reverted a vas score of 7 prior to the procedure and post-procedure vas of 1. POSTOP INSTRUCTIONS The patient was provided with a pain like to continue to record the patient's response to the target specific procedure prior to the patient's follow-up visit with the referring physician. Additionally, specific post injection care instructions and a contact number to our office were provided if concerns arise regarding the possible complications associated with procedure are suspected.
[2023-06-30 15:09] VITALS: BP 133/66; PULSE 66; RESP 16; O2SAT 100
[2023-06-30] MEDS: BETAMETHASONE 30 MG/5 ML MDV 12 MG INJ (15:11)
[2023-06-30] MEDS: iopamidoL 15 ML VIAL 3 ML INJ (15:11)
[2023-06-30] MEDS: BUPIVACAINE 0.5% (PF) 10 ML VIAL 2 ML INJ (15:12)
[2023-06-30 15:14] VITALS: BP 136/68; PULSE 61; RESP 11; O2SAT 100
[2023-06-30 15:19] VITALS: BP 146/77; PULSE 71; RESP 16; O2SAT 99
== END 2023-06-30 15:25 | disposition home or self-care (01) ==
PROVIDERS: PCP Family Medicine; Referring Provider Physical Medicine & Rehabilitation; Visit Provider Physical Medicine & Rehabilitation
DX: M53.3 Sacrococcygeal disorders, not elsewhere classified (principal); M46.1 Sacroiliitis, not elsewhere classified
CPT/HCPCS: 27096; J0702

== ENCOUNTER → 2023-07-12 08:37 | Outpatient (CLI) | payer MEDICARE, SELFPAY ==
--- NOTE | 2023-07-12 08:44 | DI.RAD.S_ITS ---
PROCEDURE: XR LUMBAR SPINE 2-3V INDICATIONS: BACK PAIN TECHNIQUE: 3 views of the lumbar spine were acquired. COMPARISON: [facility], , XR LUMBAR SPINE MIN 4V, 03/19/2020, 10:07. FINDINGS: Bones: 5 [id number]-oqplwec vertebrae are present. There is normal bony alignment. Unchanged superior mild endplate compression deformity at L2. Multilevel degenerative changes including disc and foraminal narrowing most severe at L3-4 and L5-S1. Partially visualized right hip arthroplasty. Soft tissues: Overlying bowel gas pattern is normal. No suspicious soft tissue calcifications. IMPRESSION: Multilevel degenerative changes. Dictated by: Freya Coh M.D. on 07/12/2023 at 10:28 Approved by: Freya Cho M.D. on 07/12/2023 at 10:30
--- NOTE | 2023-07-12 08:45 | DI.RAD.S_ITS ---
PROCEDURE: XR HIP W PEL IF DONE LT 2V INDICATIONS: BACK PAIN TECHNIQUE: AP pelvis with lateral view(s) of the left hip(s). COMPARISON: [facility], CR, XR PELVIS WITH LATERAL HIP LEFT, 01/26/2022, 15:38. [facility], CR, XR HIP W PEL IF DONE MELY 3TO4V, 09/14/2017, 9:55. FINDINGS: Right hip arthroplasty. Hardware is intact without hardware fracture or periprosthetic lucency to suggest loosening. Alignment is stable. Moderate left hip arthritic change. Small periarticular osteophytes are present. Bones: No fractures or dislocations. Pelvic ring appears intact. No suspicious bony lesions. Soft tissues: The visualized bowel gas pattern is normal. No suspicious soft tissue calcifications. IMPRESSION: Stable right hip arthroplasty. Moderate left hip arthritic for change. Dictated by: Freya Cho M.D. on 07/12/2023 at 12:34 Approved by: Freya Cho M.D. on 07/12/2023 at 12:35
== END ==
PROVIDERS: PCP Family Medicine; Referring Provider Chiropractor; Visit Provider Chiropractor
DX: M48.061 Spinal stenosis, lumbar region without neurogenic claudication (principal); M48.07 Spinal stenosis, lumbosacral region; M54.50 Low back pain, unspecified; M99.03 Segmental and somatic dysfunction of lumbar region; M79.662 Pain in left lower leg; Z96.641 Presence of right artificial hip joint
CPT/HCPCS: 72100; 73502

== ENCOUNTER → 2023-08-23 11:01 | Outpatient (CLI) | payer MEDICARE, SELFPAY ==
--- NOTE | 2023-08-23 11:05 | DI.RAD.S_ITS ---
PROCEDURE: XR KUB INDICATIONS: Cyst of kidney, acquired TECHNIQUE: One view of the abdomen acquired. COMPARISON: None. FINDINGS: Surgical changes and devices: Surgical clips are noted in left upper quadrant near epigastric region. There is prior right total hip arthroplasty. Bowel: Bowel gas pattern is nonobstructive. Vfvx-oe-htajzene fecal stasis in the colon is seen. Soft tissues: No suspicious abdominal calcifications. Visualized solid organ contours appear normal in size. Bones: No suspicious bony lesions. IMPRESSION: No gross renal calcifications are seen. Cvac-dz-zaobduxl constipation. No bowel obstruction or gross free air. Dictated by: Orlando Hector M.D. on 08/23/2023 at 13:04 Approved by: Orlando Hector M.D. on 08/23/2023 at 13:06
== END ==
PROVIDERS: PCP Family Medicine; Referring Provider Urology; Visit Provider Urology
DX: N28.1 Cyst of kidney, acquired (principal); K59.00 Constipation, unspecified; Z87.442 Personal history of urinary calculi
CPT/HCPCS: 74018

== ENCOUNTER → 2023-09-01 09:45 | Outpatient (CLI) | payer MEDICARE, SELFPAY ==
[2023-09-01 10:56] LABS: Add Manual Diff / Slide Review NO; Basophils Absolute Auto 100 /uL (0-100); Basophils Percent Auto 1.5 % (0-2); Eosinophils Absolute Auto 400 /uL (0-450); Hematocrit 44.4 % (41-53); Hemoglobin 15.2 g/dL (13.5-17.5); Lymphocytes Absolute Auto 1700 /uL (1100-4500); Lymphocytes Percent Auto 24.2 % (25-40); Mean Corpuscular HGB Conc 34.3 % (30-36); Mean Corpuscular Hemoglobin 32.7 PG (26-34); Mean Corpuscular Volume 95.2 fL (80-100); Monocytes Absolute Auto 600 /uL (0-900); Monocytes Percent Auto 9.1 % (3-14); Neutrophils Absolute Auto 4200 /uL (1500-7000); Neutrophils Percent Auto 59.2 % (50-75); Platelet Count 172 X10^3/uL (150-400); Red Blood Cell Count 4.66 X10^6/uL (4.5-5.9); Red Cell Distribution Width 14.8 % (11.6-14.8); White Blood Cell Count 7.1 X10^3/uL (4.5-11.0)
[2023-09-01 11:15] LABS: Alanine Aminotransferase 15 IU/L (<50); Albumin 3.8 g/dL (3.5-5.0); Albumin Globulin Ratio 1.5 (1.0-2.8); Alkaline Phosphatase 96 U/L (38-126); Aspartate Aminotransferase 24 IU/L (17-59); BUN Creatinine Ratio 33.3 (6-22); Bilirubin Total 0.9 mg/dL (0.2-1.3); Blood Urea Nitrogen 24 mg/dL (9-20); Calcium 8.9 mg/dL (8.4-10.2); Carbon Dioxide 27 mmol/L (22-32); Chloride 108 mmol/L (98-107); Cholesterol 193 mg/dL (140-199); Estimated Glomerular Filt Rate > 60 mL/min (>60); Globulin 2.5 g/dL (1.7-4.1); Glucose 100 mg/dL (80-110); HDL Cholesterol 50 mg/dL (40-60); HEMOLYSIS < 15 (0-50); LDL Cholesterol Calculated 120 mg/dL (<100); Potassium 4.7 mmol/L (3.4-5.1); Sodium 138 mmol/L (137-145); Total Protein 6.3 g/dL (6.3-8.2); Triglycerides 113 mg/dL (35-150)
[2023-09-01 16:24] LABS: Hep C Virus Ab w/Reflex Quant NEGATIVE s/c (NEGATIVE)
== END ==
PROVIDERS: PCP Family Medicine; Referring Provider Family Medicine; Visit Provider Family Medicine
DX: Z13.9 Encounter for screening, unspecified (principal); I25.10 Atherosclerotic heart disease of native coronary artery without angina pectoris; Z13.220 Encounter for screening for lipoid disorders; Z11.59 Encounter for screening for other viral diseases
CPT/HCPCS: 36415; 80053; 80061; 85025; 86803

== ENCOUNTER → 2023-09-19 09:53 | Outpatient (CLI) | payer MEDICARE, SELFPAY ==
--- NOTE | 2023-09-19 | DI.RAD.S_ITS ---
PROCEDURE: XR KNEE LT 3V INDICATIONS: left knee pain TECHNIQUE: 3 views of the knee were acquired. COMPARISON: None. FINDINGS: Bones: No fractures or dislocations. Mild to moderate DJD especially in the medial compartment of the knee noted. Soft tissues: No suprapatellar joint effusion seen. IMPRESSION: Fikr-av-fbddehqo DJD of the knee Dictated by: Skyler Islas M.D. on 09/19/2023 at 12:25 Approved by: Skyler Islas M.D. on 09/19/2023 at 12:26
== END ==
LOC: RAD 09:56
PROVIDERS: PCP Family Medicine; Referring Provider Chiropractor; Visit Provider Chiropractor
DX: M25.562 Pain in left knee (principal); M17.12 Unilateral primary osteoarthritis, left knee
CPT/HCPCS: 73562

== ENCOUNTER 2023-09-19 18:23 | Emergency (ER) | payer MEDICARE, SELFPAY ==
[2023-09-19 18:27] VITALS: BP 137/84; PULSE 80; RESP 16; TEMP 36.6; O2SAT 98; BMI 25.0
[2023-09-19] MEDS: FLUORESCEIN 1 MG STRIP EYE-RIGHT (18:35)
[2023-09-19] MEDS: PROPARACAINE 0.5% OPHTH SOL 1 DROPS EYE-RIGHT (18:35)
--- NOTE | 2023-09-19 18:47 | ED.GENADULT ---
HPI - General Adult General Chief complaint: Eye Problems Stated complaint: something stuck in rt eye Time Seen by Provider: 09/19/23 18:34 Source: patient Mode of arrival: Ambulatory History of Present Illness HPI narrative: 78-year-old gentleman with a history of arthritis, reflux, depression who was working in his garage and had some debris get into the right eye. There was no history of trauma, welding, chopping wood or specific saw dust. He did try to rinse the eye out and is continuing to have discomfort in the right side. Slight decreased vision on the right side with the increased tearing but otherwise unremarkable. He has no other complaints or concerns today Related Data Home Medications Medication Instructions Recorded Confirmed dexlansoprazole 60 mg 60 mg PO DAILY 08/11/17 09/14/23 capsule,biphase delayed release (Dexilant) acetaminophen 325 mg capsule 650 mg PO Q6H PRN 08/22/19 09/14/23 (Tylenol) fluconazole 150 mg tablet 150 mg PO DAILY 02/21/23 09/14/23 ketoconazole 2 % shampoo 1 applic topical Q2W 02/21/23 09/14/23 meloxicam 15 mg tablet 15 mg PO DAILY 02/21/23 09/14/23 triamcinolone acetonide 0.1 % 1 applic topical DAILY 02/21/23 09/14/23 topical cream celecoxib 200 mg capsule (Celebrex) 200 mg PO DAILY 08/10/23 09/14/23 risankizumab-rzaa 150 mg/mL 150 mg SUBCUT Q12W 08/10/23 09/14/23 subcutaneous pen injector (Skyrizi) Previous Rx's Medication Instructions Recorded duloxetine 30 mg capsule,delayed 30 mg PO BID #60 caps 09/01/23 release Allergies Allergy/AdvReac Type Severity Reaction Status Date / Time Penicillins Allergy Severe Anaphylaxis Verified 09/19/23 18:27 codeine AdvReac Unknown Nausea Verified 09/19/23 18:27 Review of Systems Review of Systems Narrative: Pertinent positive and negative findings as per HPI Patient History Medical History Vision disorder Osteoarthritis Chronic back pain Costochondritis Thoracic stenosis Sacral dysfunction Facet arthropathy, lumbar Surgical History H/O heart artery stent History of total right knee replacement Family History Unknown No pertinent family history Social History marital status: Smoking Status: Former smoker Smoking Status: Former smoker alcohol intake frequency: holidays/special occasions only Substance Use Type: does not use Exam Initial Vital Signs Initial Vital Signs: Vital Signs Temperature 97.8 F 09/19/23 18:27 Pulse Rate 80 09/19/23 18:27 Respiratory Rate 16 09/19/23 18:27 Blood Pressure 137/84 09/19/23 18:27 Pulse Oximetry 98 09/19/23 18:27 Oxygen Delivery Method Room Air 09/19/23 18:27 General: Alert appropriate in no acute distress HEENT: Right eye somewhat swollen right lid from being rubbed, mild scleral injection. With the initial exam there was no obvious foreign body or abnormality. With fluorescein staining there is no corneal abnormalities but there is a bit of increased uptake in the right upper portion of the sclera. With eyelid eversion there is a small bit of debris that is attached to the inner eyelid that is gently removed with a Q-tip. Respiratory: Able to speak in full sentences, no obvious respiratory distress Skin: No obvious rashes, warm and dry Neurologic: Grossly intact no obvious asymmetries or abnormalities Psych: appropriate insight and affect, cooperative Course Orders Ordered: Proparacaine HCl (Proparacaine 0.5% Ophth Simran) 1 drops EYE-RIGHT PRN PRN PRN Reason: Pain, Moderate (4-6) Last Admin: 09/19/23 18:35 Dose: 1 drop Documented By: DESHAUN Discontinued Medications Diphtheria/Tetanus/Acell Pertussis (Tet,Diph,Pertuss(Acell),Vac/Pf 0.5 Ml Syringe) 0.5 ml IM .ONCE ONE Stop: 09/19/23 18:31 Last Admin: 09/19/23 18:34 Dose: Not Given Documented By: DESHAUN Fluorescein Sodium (Fluorescein 1 Mg Strip) 1 mg EYE-RIGHT NOW ONE Stop: 09/19/23 18:32 Last Admin: 09/19/23 18:35 Dose: 1 mg Documented By: DESHAUN Vital Signs Vital signs: Vital Signs - 8 hr 09/19/23 18:27 Temperature 97.8 F Pulse Rate 80 Respiratory Rate 16 Blood Pressure 137/84 Pulse Oximetry 98 Oxygen Delivery Method Room Air Medical Decision Making MDM Narrative Medical decision making narrative: CC: Foreign body right eye Complicating co-morbidities: Arthritis, reflux, depression Data collected from: patient Medical records reviewed: Recent primary care note August 31 Differential considered: Irritation, corneal abrasion, foreign body Exam documented above, pertinent findings include: Exam is done with fluorescein staining. No corneal abrasions or scratches. There are small bit of debris adherent to the inner surface of the eyelid that was removed with diverting the lid. Patient tolerated that procedure well Discussion: 78-year-old gentleman with a bit of debris that was adherent to the upper lid causing eye irritation. This was removed and patient was feeling much better. No evidence of corneal abrasion or additional eye trauma. Reassurance is given questions are answered and he is safe for discharge Discharge Plan Departure Patient Disposition: Home Clinical Impression: Foreign body of eye, external, right Qualifiers: Encounter type: initial encounter Qualified Code(s): T15.91XA - Foreign body on external eye, part unspecified, right eye, initial encounter Instructions: DI for Foreign Body in the Eye Activity Restrictions/Additional Instructions: Thank you for coming in today I think that you are correct, there was a small bit of debris that was stuck to the inside of your eyelid on the right side that was causing the irritation. With microscopic examination and fluorescein staining there was no evidence of scratches to your cornea With a numbing drops wear off your eye should feel significantly better. If you are continuing to have difficulty this evening, it would be appropriate to come back and have me take another look. If you find that you are getting worse or develop any new symptoms, please feel free to return to the emergency department for further evaluation. Prescriptions: No Action duloxetine 30 mg capsule,delayed release(DR/EC) 30 mg PO BID Qty: 60 2RF Rx Instructions: Take 1 capsule daily for 2 weeks then increase to 2 capsules daily acetaminophen [Tylenol] 325 mg capsule 650 mg PO Q6H PRN Skyrizi 150 mg/mL pen injector 150 mg SUBCUT Q12W Patient Comments: [NO ORIGINAL SIG] celecoxib [Celebrex] 200 mg capsule 200 mg PO DAILY dexlansoprazole [Dexilant] 60 mg capsule,biphase delayed releas 60 mg PO DAILY meloxicam 15 mg tablet 15 mg PO DAILY ketoconazole 2 % shampoo 1 applic topical Q2W fluconazole 150 mg tablet 150 mg PO DAILY triamcinolone acetonide 0.1 % cream 1 applic topical DAILY Referrals: Riccardo Herrera MD [Primary Care Provider] - Stand Alone Forms: Patient Portal/API
== END 2023-09-19 18:56 | disposition home or self-care (01) ==
PROVIDERS: Emergency Provider Emergency Medicine; PCP Family Medicine
DX: T15.91XA Foreign body on external eye, part unspecified, right eye, initial encounter (principal); M17.12 Unilateral primary osteoarthritis, left knee; M25.562 Pain in left knee; W44.9XXA Unspecified foreign body entering into or through a natural orifice, initial encounter
CPT/HCPCS: 65205; 73562; 99282; 99283

== ENCOUNTER 2023-10-18 08:48 | Outpatient (CLI) | payer MEDICARE, SELFPAY ==
[2023-10-18] VITALS (8 sets, daily range): BP systolic 121–149; BP diastolic 62–86; PULSE 65–72; RESP 12–18; TEMP 36.6; O2SAT 96–100
--- NOTE | 2023-10-18 09:30 | DI.RAD.S_ITS ---
PROCEDURE: PAIN C/T INTERLAMINAR INJECT INDICATIONS: C6-7 translaminar ARTHUR COMPARISON: [facility], , PAIN C/T INTERLAMINAR INJECT, 12/28/2018, 9:09. FINDINGS: Fluoroscopic spot filming was performed to verify placement of spinal needles at the C6-7 level(s), as labeled on the films. Appropriate location(s) of the needle tip(s) was confirmed by injection of iodinated contrast. IMPRESSION: Fluoro guidance was provided intraoperatively for C6-7 translaminar ARTHUR performed by ordering physician. Dictated by: Orlando Hector M.D. on 10/18/2023 at 21:21 Approved by: Orlando Hecotr M.D. on 10/18/2023 at 21:22
[2023-10-18] MEDS: MIDAZOLAM 2 MG/2 ML VIAL IV (09:40)
[2023-10-18] MEDS: DEXAMETHASONE 10 MG/ML VIAL 30 MG INJ (09:46)
[2023-10-18] MEDS: BUPIVACAINE 0.25% (PF) VIAL 2 ML INJ (09:46)
[2023-10-18] MEDS: iopamidoL 15 ML VIAL 3 ML INJ (09:47)
--- NOTE | 2023-10-18 10:02 | P.PCN_ITS ---
Date/Time/Diagnoses Date of procedure: 10/18/23 Time of procedure: 10:02 Pre-procedure diagnosis: 1. CERVICAL STENOSIS, 2. CERVICAL HNP WITH UPPER EXTREMITY RADICULAR FEATURES Post-procedure diagnosis: same Procedure Notes Procedure: 1. FLUORSCOPICALLY GUIDED CONTRAST CONTROLLED INTERLAMINAR EPIDURAL STEROID INJECTION - C6/7 TL ARTHUR Indications: Dick is referred by Dr. Herrera for treatment of Cervical HNP with Upper Extremity Paresthesias. Physician: Jareth Sarkar Total Fluoroscopy time (seconds): 32 Total sedation minutes: 18 Complications: none Procedure in detail & Post-procedure care: FINDINGS Cervical Stenosis due to disc deterioration and nerve root irritation and nerve root irritation DESCRIPTION OF PROCEDURE Fluoroscopically guided, contrast-controlled C6/7 translaminar epidural steroid injection with conscious sedation. Following review of allergy and review of potential side effects and complications, including, but not necessarily limited to, infection, allergic reaction, local tissue breakdown, temporary as well as permanent nerve injury, stroke, paralysis, and possible , the patient indicated that patient understood and agreed to proceed. An informed consent document was signed by the patient, witnessed by a nurse, and placed in the patient's chart. Additionally, other treatment options including modalities, medications, and physical therapy were reviewed with the patient. After review of previous anaesthesic history and IV conscious sedation the patient was deemed safe to proceed with today?s procedure with IV conscious sedation as ASA class II designation. Safety time-out was performed to confirm patient ID, procedure to be performed and site of procedure. IV sedation was accomplished with a combination of 2mg of Versed administered by the RN after DO order, titrated to patient comfort during the course of the procedure while the patient remained responsive to all verbal commands. In the prone position, following sterile prep and drape of the cervical region, the C6/7 translaminar space was identified fluoroscopically. The skin was anesthetized via a 25-gauge 1.5-inch needle with 1% lidocaine solution. At this point, a 25-gauge, 2.5-inch short bevel spinal needle was atraumatically introduced and advanced under fluoroscopic guidance into epidural space at the C6/7 translaminar space. Depth was confirmed on lateral view. Radiological data, including multiple fluoroscopic views of the cervical spine, reveal a spinal needle at the C6/7 translaminar space. Lateral views then show placement of the needle in the epidural space. Subsequent views show contrast material flowing superiorly and inferiorly in the epidural space. DSA fluoroscopy with live contrast injection, once again, confirmed no vascular or intrathecal uptake. At this point, using loss of resistance technique with saline and air, the epidural space was entered. Following negative aspiration, injection of approximately 1.5 cc of Isovue-200 with live fluoroscopy in the AP view confirmed epidural flow in the epidural space without vascular or intrathecal uptake observed. Subsequently, a test dose of 1 cc of 1% lidocaine solution was injected and patient was observed for two minutes without signs or symptoms of complications, including abdominal pain, shortness of breath, bilateral upper or lower extremity weakness, nausea and vomiting, prior to steroid injection. At this point, 3cc or 30mg of dexamethasone was then injected without incident. The patient tolerated the procedure well without signs or symptoms of complic ations prior to being transferred to the recovery area for further monitoring, The patient was then transferred to the recovery area where they were observed for an appropriate period of time after the injection. The patient reported a VAS score of 6 prior to the procedure and a post-procedure VAS of 0. POST OP INSTRUCTIONS The patient was provided a Pain Log to continue to record their response to the target-specific procedure prior to follow-up visit with the referring provider. Additionally, specific post-injection care instructions and a contact number to our office were provided if concerns arise regarding possible complications associated with the procedure are suspected.
== END 2023-10-18 10:15 | disposition home or self-care (01) ==
PROVIDERS: PCP Family Medicine; Referring Provider Physical Medicine & Rehabilitation; Visit Provider Physical Medicine & Rehabilitation
DX: M48.02 Spinal stenosis, cervical region (principal); M50.123 Cervical disc disorder at C6-C7 level with radiculopathy
CPT/HCPCS: 62321; 99152; J1100; J2250; J3490

== ENCOUNTER → 2024-01-11 08:35 | Outpatient (CLI) | payer MEDICARE, SELFPAY ==
[2024-01-11 15:09] LABS: Hematocrit 45.7 % (41-53); Hemoglobin 15.4 g/dL (13.5-17.5); Mean Corpuscular HGB Conc 33.6 % (30-36); Mean Corpuscular Hemoglobin 32.2 PG (26-34); Platelet Count 171 X10^3/uL (150-400); Red Blood Cell Count 4.76 X10^6/uL (4.5-5.9); Red Cell Distribution Width 14.4 % (11.6-14.8); White Blood Cell Count 6.8 X10^3/uL (4.5-11.0)
[2024-01-11 15:43] LABS: HEMOLYSIS < 15 (0-50); Iron 76 ug/dL (49-181)
[2024-01-11 15:47] LABS: Alanine Aminotransferase 13 IU/L (<50); Albumin Globulin Ratio 1.4 (1.0-2.8); Alkaline Phosphatase 92 U/L (38-126); Aspartate Aminotransferase 26 IU/L (17-59); BUN Creatinine Ratio 29.5 (6-22); Bilirubin Total 0.8 mg/dL (0.2-1.3); Blood Urea Nitrogen 26 mg/dL (9-20); Calcium 9.2 mg/dL (8.4-10.2); Carbon Dioxide 30 mmol/L (22-32); Chloride 103 mmol/L (98-107); Estimated Glomerular Filt Rate > 60 mL/min (>60); Globulin 2.8 g/dL (1.7-4.1); Glucose 106 mg/dL (80-110); HEMOLYSIS < 15 (0-50); Potassium 4.4 mmol/L (3.4-5.1); Sodium 138 mmol/L (137-145); Total Protein 6.8 g/dL (6.3-8.2)
[2024-01-11 15:57] LABS: Percent Iron Saturation 23 % (20-50); Total Iron Binding Capacity 329 ug/dL (261-462); Transferrin 249 mg/dL (206-381)
[2024-01-11 16:19] LABS: Prostate Specific Antigen Scrn 0.912 ng/mL (0.1-4.0)
[2024-01-11 16:23] LABS: Ferritin 94 ng/mL (18-464)
== END ==
PROVIDERS: PCP Family Medicine; Referring Provider Family Medicine; Visit Provider Family Medicine
DX: I10 Essential (primary) hypertension (principal); Z79.1 Long term (current) use of non-steroidal anti-inflammatories (NSAID); Z12.5 Encounter for screening for malignant neoplasm of prostate; I25.10 Atherosclerotic heart disease of native coronary artery without angina pectoris; R68.89 Other general symptoms and signs; R35.1 Nocturia; M15.9 Polyosteoarthritis, unspecified; N52.9 Male erectile dysfunction, unspecified; L40.9 Psoriasis, unspecified
CPT/HCPCS: 80053; 82728; 83540; 83550; 83735; 85027; G0103

== ENCOUNTER → 2024-05-07 09:56 | Outpatient (CLI) | payer MEDICARE, SELFPAY ==
[2024-05-07 11:41] LABS: Cholesterol 147 mg/dL (140-199); HDL Cholesterol 39 mg/dL (40-60); LDL Cholesterol Calculated 79 mg/dL (<100); Triglycerides 146 mg/dL (35-150)
== END ==
PROVIDERS: PCP Family Medicine; Referring Provider Internal Medicine Cardiovascular Disease; Visit Provider Internal Medicine Cardiovascular Disease
DX: I21.9 Acute myocardial infarction, unspecified (principal); M79.10 Myalgia, unspecified site; R06.02 Shortness of breath
CPT/HCPCS: 36415; 80061

== ENCOUNTER → 2024-05-30 08:51 | Outpatient (CLI) | payer MEDICARE, SELFPAY ==
[2024-05-30 10:31] LABS: BUN Creatinine Ratio 25.6 (6-22); Blood Urea Nitrogen 21 mg/dL (9-20); Calcium 9.1 mg/dL (8.4-10.2); Carbon Dioxide 25 mmol/L (22-32); Chloride 105 mmol/L (98-107); Estimated Glomerular Filt Rate > 60 mL/min (>60); Glucose 103 mg/dL (80-110); HEMOLYSIS < 15 (0-50); Potassium 4.1 mmol/L (3.4-5.1); Sodium 141 mmol/L (137-145)
== END ==
LOC: LAB 08:51
PROVIDERS: PCP Family Medicine; Referring Provider Family Medicine; Visit Provider Family Medicine
DX: I25.10 Atherosclerotic heart disease of native coronary artery without angina pectoris (principal); N52.9 Male erectile dysfunction, unspecified
CPT/HCPCS: 36415; 80048; 84402; 84403

== ENCOUNTER → 2024-06-28 16:08 | Outpatient (CLI) | payer MEDICARE, SELFPAY | LOC: LAB 16:09 | PROVIDERS: PCP Family Medicine; Visit Provider Urology | DX: R35.1 Nocturia (principal) | CPT/HCPCS: 87086 ==

== ENCOUNTER 2024-10-16 12:20 | Outpatient (CLI) | payer MEDICARE, SELFPAY ==
[2024-10-16] VITALS (9 sets, daily range): BP systolic 117–141; BP diastolic 62–91; PULSE 62–74; RESP 15–22; TEMP 36.6; O2SAT 97–100
[2024-10-16] MEDS: MIDAZOLAM 2 MG/2 ML VIAL IV (13:33)
[2024-10-16] MEDS: BETAMETHASONE 30 MG/5 ML MDV 12 MG INJ (13:38)
[2024-10-16] MEDS: BETAMETHASONE 30 MG/5 ML MDV 6 MG INJ (13:39)
--- NOTE | 2024-10-16 13:52 | P.PCN_ITS ---
Date/Time/Diagnoses Date of procedure: 10/16/24 Time of procedure: 13:52 Pre-procedure diagnosis: Sacroiliac joint pain/DJD Post-procedure diagnosis: same Procedure Notes Procedure: Fluoroscopic guided contrast controlled bilateral sacroiliac joint injection Indications: Dick is referred by Dr. Herrera for treatment of bilateral sacroiliac joint DJD Physician: Jareth Sarkar Total Fluoroscopy time (seconds): 11 Total sedation minutes: 13 Complications: none Procedure in detail & Post-procedure care: Description of procedure Fluoroscopic guided, contrast controlled bilateral sacroiliac joint injection Following review of allergies and review of potential side effects and complications, including, but not necessarily limited to, infection, allergic reaction, local tissue breakdown, temporary as well as permanent nerve injury, paralysis, stroke and possible , the patient indicated that they understood and agreed to proceed. An informed consent was signed by the patient, witnessed by a nurse, and placed in the patient's chart. Additionally, other treatment options including modalities, medications, and physical therapy were reviewed with the patient. After review of previous anaesthesic history and IV conscious sedation the patient was deemed safe to proceed with today?s procedure with IV conscious sedation as ASA class II designation. Safety time-out was performed to confirm patient ID, procedure to be performed and site of procedure. IV sedation was accomplished with a combination of 2mg Versed were administered by the RN after DO order, titrated to patient comfort during the course of the procedure while the patient remained responsive to all verbal commands In the prone position following sterile prep and drape of the pelvic region, the hyper lucency on in the inferior aspect of the sacroiliac joint was identified fluoroscopically the skin was anesthetized be a 25 gauge 1.5 inch needle with approximately 2cc of 1% lidocaine solution. At this point, a 22 gauge 3 in sp inal needle was atraumatically introduced and advanced under fluoroscopic guidance into the inferior aspect of the right sacroiliac joint. Following negative aspiration, approximately 0.3cc of Isovue-300 was injected confirming intra-articular placement without vascular uptake. Radiographic data, including multiple fluoroscopic views of the pelvis, reveals a spinal needle in the sacroiliac joint hyper lucent zone. Subsequent view show flow contrast tear superiorly and inferiorly within the joint capsule without vascular intrathecal uptake. At this point a total of 1cc of 0.5% Marcaine was combined with 1cc of 6mg of betamethasone was injected without incident. Attention was then refocused the left sacroiliac joint where the procedure was replicated. The procedure tolerated the procedure well without signs or symptoms of complications prior to transfer to the recovery area continued monitoring without incident. The patient was then transferred to the recovery area with a bur observed for an appropriate time after the injection. The patient reverted a vas score of 7 prior to the procedure and post-procedure vas of 1. Postop instructions The patient was provided with a pain like to continue to record the patient's response to the target specific procedure prior to the patient's follow-up visit with the referring physician. Additionally, specific post injection care instructions and a contact number to our office were provided if concerns arise regarding the possible complications associated with procedure are suspected.
== END 2024-10-16 14:08 | disposition home or self-care (01) ==
LOC: RAD 12:21
PROVIDERS: PCP Family Medicine; Referring Provider Physical Medicine & Rehabilitation; Visit Provider Physical Medicine & Rehabilitation
DX: M46.1 Sacroiliitis, not elsewhere classified (principal); M53.3 Sacrococcygeal disorders, not elsewhere classified
CPT/HCPCS: 27096; 99152; J0702; J2250

== ENCOUNTER → 2024-12-11 09:32 | Outpatient (CLI) | payer MEDICARE, SELFPAY ==
[2024-12-11 10:53] LABS: Hematocrit 43.9 % (41-53); Hemoglobin 15.1 g/dL (13.5-17.5); Mean Corpuscular HGB Conc 34.3 % (30-36); Mean Corpuscular Hemoglobin 32.8 PG (26-34); Mean Corpuscular Volume 95.5 fL (80-100); Platelet Count 190 X10^3/uL (150-400)
[2024-12-11 11:19] LABS: Alanine Aminotransferase 17 IU/L (<50); Albumin 4.0 g/dL (3.5-5.0); Albumin Globulin Ratio 1.4 (1.0-2.8); Alkaline Phosphatase 95 U/L (38-126); Blood Urea Nitrogen 28 mg/dL (9-20); Calcium 9.2 mg/dL (8.4-10.2); Carbon Dioxide 28 mmol/L (22-32); Chloride 104 mmol/L (98-107); Cholesterol 192 mg/dL (140-199); Estimated Glomerular Filt Rate > 60 mL/min (>60); Globulin 2.8 g/dL (1.7-4.1); Glucose 99 mg/dL (70-99); HDL Cholesterol 53 mg/dL (40-60); HEMOLYSIS < 15 (0-50); Potassium 4.5 mmol/L (3.4-5.1); Sodium 138 mmol/L (137-145); Total Protein 6.8 g/dL (6.3-8.2); Triglycerides 148 mg/dL (35-150)
[2024-12-11 14:31] LABS: Microalbumi Creatinin Ratio Ur 11.0 ug/mg CR (<30)
== END ==
PROVIDERS: PCP Family Medicine; Referring Provider Family Medicine; Visit Provider Family Medicine
DX: E78.00 Pure hypercholesterolemia, unspecified (principal)
CPT/HCPCS: 36415; 80053; 80061; 82043; 82570; 85027